=== PATIENT | female | born 1960 | race Caucasian/White ===

== ENCOUNTER → 2017-02-16 | Outpatient (CLI) | payer OTHER ==
--- NOTE | 2017-02-17 05:55 | MR ---
EXAMINATION TYPE: MR knee RT wo con DATE OF EXAM: 02/16/2017 7:38 PM COMPARISON: Outside right knee x-ray January 12, 2017. Prior MRI right knee May 16, 2016. HISTORY: Rt knee pain, slipped on ice 11-14-16 TECHNIQUE: Multiplanar, multisequence images of the knee is performed without IV contrast. FINDINGS: MEDIAL MENISCUS: Anterior horn is intact without tear. There is linear and globular increased signal in the posterior horn of medial meniscus extending to inferior articular surface which is truncated i n shape consistent with full-thickness tear similar appearance to prior. LATERAL MENISCUS: Anterior and posterior horns are intact without tear. CRUCIATE LIGAMENTS: The anterior and posterior cruciate ligaments are intact and unremarkable. COLLATERAL LIGAMENTS: The medial collateral ligament and lateral collateral ligament complex are inta ct and unremarkable. EXTENSOR MECHANISM: Visualized quadriceps and patellar tendons are intact. EFFUSION: There is a large suprapatellar joint effusion on current study more prominent than prior MR I. POPLITEAL CYST: No popliteal/magaña cyst. There is increased signal medial head just past origin danny rocnemius tendon seen best on axial image 11 and sagittal image 7 consistent with partial tear or sma ll ganglion cyst redemonstrated. TRICOMPARTMENT SPACES: Moderate to severe joint space loss patellofemoral compartment with mild to mo derate spurring is redemonstrated. There is mild joint space loss with mild to moderate spurring in t he medial and lateral tibiofemoral compartments, slightly more pronounced joint space loss medial tib iofemoral compartment is noted. CARTILAGE: There is full-thickness cartilaginous loss of the posterior patellar pole. There is cartil aginous thinning medial tibiofemoral compartment. BONE MARROW SIGNAL: There are foci of of T2 hyperintensity in the posterior patellar pole most pronou nced in the superior aspect. OTHER: No additional significant abnormality is appreciated. IMPRESSION: 1. Full-thickness tear posterior horn of medial meniscus redemonstrated. 2. Redemonstration of tricompartmental degenerative changes most pronounced patellofemoral compartmen t with full-thickness chondromalacia patella and some reactive osseous changes redemonstrated. 3. Large suprapatellar joint effusion increased in size from prior. 4. No new meniscal or ligamentous tear is seen.
== END | disposition home or self-care (01) ==
LOC: RADMRIMAIN 18:40
PROVIDERS: ATTEND Orthopaedic Surgery
DX: S83.241A Other tear of medial meniscus, current injury, right knee, initial encounter (principal); M17.11 Unilateral primary osteoarthritis, right knee; M22.41 Chondromalacia patellae, right knee

== ENCOUNTER → 2017-02-25 | Outpatient (CLI) | payer OTHER ==
[2017-02-25 14:44] LABS: EKG EKG PERFORMED
[2017-02-25 15:07] LABS: Basophils % (A) 1 %; CH 31.1; CHCM 32.7; Eosinophils # (A) 0.2 k/uL (0-0.7); Eosinophils % (A) 3 %; HCT 43.9 % (34.0-46.0); HDW 2.35; HGB 14.4 gm/dL (11.4-16.0); Luc # (Auto) 0.19; Luc % (Auto) 3; Lymphocytes # (A) 2.7 k/uL (1.0-4.8); Lymphocytes % (A) 38 %; MCH 31.3 pg (25.0-35.0); MCHC 32.8 g/dL (31.0-37.0); MCV 95.3 fL (80.0-100.0); Mean Platelet Volume 7.5; Monocytes # (A) 0.4 k/uL (0-1.0); Monocytes % (A) 5 %; Neutrophils # (A) 3.5 k/uL (1.3-7.7); Neutrophils % (A) 50 %; RDW 14.2 % (11.5-15.5); WBC 6.9 k/uL (3.8-10.6); WBC (Perox) 7.11
[2017-02-25 15:15] LABS: Anion Gap 10 mmol/L; Carbon Dioxide 26 mmol/L (22-30); Chloride 106 mmol/L (98-107); Potassium 4.3 mmol/L (3.5-5.1); Sodium 142 mmol/L (137-145)
== END | disposition home or self-care (01) ==
LOC: LABPAT 14:14
PROVIDERS: ATTEND Orthopaedic Surgery
DX: Z01.818 Encounter for other preprocedural examination (principal); M23.91 Unspecified internal derangement of right knee
CPT/HCPCS: 80051; 85025; 93005

== ENCOUNTER 2017-03-05 08:17 | Day surgery (SDC) | payer BC, OTHER ==
[2017-03-03 14:45] VITALS: BMI 31.0
--- NOTE | 2017-03-04 17:22 | HP ---
DATE OF ADMISSION: Tamar Garcia is a 56-year-old patient seen with progressive right knee pain. After having treatment options discussed, she elected to proceed with right knee arthroscopy. Consent was obtained. Past medical history is hypertension. PAST SURGICAL HISTORY: Left shoulder arthroscopy. Daily medications: 1. Losartan. 2. Ibuprofen. ALLERGIES: None. SOCIAL HISTORY: The patient smokes cigarettes. Physical evaluation of right knee: Range of motion is -1/2 to 120 degrees, as a mild intra-articular effusion present. Tenderness along the medial joint line. Positive medial Tony's. Crepitus medial and patellofemoral compartments with range of motion. Ligaments stable. Hip rotation without pain. Distal neurovascular exam intact. Radiographs of the right knee revealed mild osteoarthritic changes. MRI right knee revealed medial meniscal tear, joint effusion and osteoarthritis. IMPRESSION: Internal derangement of right knee with medial meniscal tear. PLAN: Right knee arthroscopy with partial meniscectomy and debridement.
[~2017-03-05 08:17] MED LIST: DEXAMETHASONE SOD PHOSPHATE 10 MG/ML 1 ML VIAL IV ONE; LACTATED RINGERS 1,000 ML IV SCH; MIDAZOLAM 2 MG/2 ML VIAL IV PRN; ceFAZolin 2 GM in SODIUM CHLORIDE 0.9% 100 ML IVPB ONE
[2017-03-05] MEDS ORDERED: LIDOCAINE 1% 20 ML VIAL (10MG/ML) FOR IV START INTRADERMA ONE (08:50)
[2017-03-05] MEDS: ONDANSETRON 4 MG/2 ML VIAL IVP ONE ×2 (08:54→11:06)
[2017-03-05] MEDS ORDERED: BUPIVACAIN-EPI 0.25%-1:200,000 30 ML VIAL INTRAARTIC ONE (09:32)
[2017-03-05] MEDS ORDERED: PROPOFOL 10 MG/ML 20 ML VIAL IV ONE (09:45)
[2017-03-05] MEDS ORDERED: KETOROLAC 30 MG/ML 1 ML VIAL ONE (09:45)
[2017-03-05] MEDS ORDERED: LIDOCAINE 1% INJ 10MG/ML (20 ML MDV) ONE (09:45)
[2017-03-05] MEDS ORDERED: fentaNYL (PF) 50 MCG/ML 2 ML AMP ONE (09:45)
[2017-03-05] MEDS ORDERED: SUCCINYLCHOLINE CHLORIDE 100 MG/5 ML SYR IV ONE (09:45)
[2017-03-05] MEDS ORDERED: MIDAZOLAM 2 MG/2 ML VIAL ONE (09:45)
--- NOTE | 2017-03-05 10:47 | P.OP ---
Date of Procedure: 03/05/17 Preoperative Diagnosis: Internal derangement right knee Postoperative Diagnosis: 1. Tear medial and lateral meniscus right knee 2. Grade 2/3 chondromalacia medial femoral condyle right knee 3. Grade 2 chondromalacia patella right knee 4. Reactive synovitis medial and suprapatellar compartments right knee Procedure(s) Performed: 1. Arthroscopic partial medial and lateral meniscectomy right knee 2. Arthroscopic chondroplasty medial femoral condyle right knee 3. Arthroscopic chondroplasty patella right knee 4. Arthroscopic partial synovectomy medial and suprapatellar compartments right knee Anesthesia: GETA Surgeon: Anjum Rust Estimated Blood Loss (ml): 10 Pathology: none sent Condition: stable Disposition: PACU Indications for Procedure: 56-year-old patient seen with right knee pain. After treatment options discussed , she elected to proceed with right knee arthroscopy. Operative Findings: see description of procedure Description of Procedure: Patient was taken to the operative suite. Patient underwent a general anesthetic by the department of anesthesia. Patient was given preoperative antibiotics. The right lower extremity was placed in a well-padded arthroscopic leg ruiz. The right leg was prepped and draped in the normal sterile orthopedic fashion. A lateral parapatellar and suprapatellar incision was made. Trochars were inserted. Arthroscopy was initiated. Suprapatellar pouch revealed thick reactive synovitis. The patellofemoral joint appeared to articulate congruently. There was grade 2 chondromalacia of the patella with some osteochondral tears present. The scope was guided into the medial gutter. No loose bodies or plica were identified. The scope was then guided into the medial compartment. A medial parapatellar incision was made. Trocar inserted followed by probe. There was a radial tear involving the posterior horn of the medial meniscus. There were grade 2 and 3 chondromalacia changes of the medial femoral condyle with some osteochondral tears present. There were grade 1-2 chondromalacia changes of the tibial plateau. No loose bodies. There was some synovitis anteriorly. A partial medial meniscectomy was performed on a stable tissue. I performed a chondroplasty of the medial femoral condyle and partial synovectomy. The residual meniscus was found stable. The residual osteochondral surface of the medial femoral condyle was stable. Scope and probe were then guided into the intercondylar notch. Cruciates were identified , probed and found to be stable. The scope and probe were then guided into lateral compartment. There was a tear posterior horn lateral meniscus. There were mild grade 1 chondromalacia changes lateral compartment. No loose bodies or reactive synovitis. A partial lateral meniscectomy was performed on a stable tissue. The residual meniscus was probed and found to be stable. The scope was in guided back into the suprapatellar compartment. I introduced a motorized shaver into the super patellar compartment. I debrided some piecemeal fragments of meniscus. I performed a chondroplasty of the patella down to stable tissue. I performed a partial synovectomy. The shaver was removed. I took one more look around the entire knee, no residual debris. Instruments were now removed from the joint. The joint was infiltrated with .25 % Marcaine. Steri-Strips were applied to the portal sites. Sterile dressings were applied. The patient was placed into a JERRY hose. No tourniquet was utilized. The patient was awakened, transferred to a bed and taken to recovery stable satisfactory condition.
[2017-03-05 10:52] VITALS: TEMP 97
[2017-03-05] MEDS: HYDROmorphone 1 MG/ML 1 ML SYRINGE IVP PRN ×4 (11:06→11:24)
[2017-03-05] MEDS ORDERED: MEPERIDINE 50 MG/ML SYRINGE IVP ONE (11:31)
[2017-03-05 11:32] VITALS: RESP 14
[2017-03-05 12:22] VITALS: BP 137/80; PULSE 73
[2017-03-05] MEDS ORDERED: HYDROcodone/APAP 7.5-325MG 1 EACH TAB PO ONE (12:42)
== END 2017-03-05 12:40 | disposition home or self-care (01) ==
LOC: OR 08:17
PROVIDERS: ATTEND Orthopaedic Surgery
DX: S83.241A Other tear of medial meniscus, current injury, right knee, initial encounter (principal); S83.281A Other tear of lateral meniscus, current injury, right knee, initial encounter; X58.XXXA Exposure to other specified factors, initial encounter; M94.261 Chondromalacia, right knee; M22.41 Chondromalacia patellae, right knee; M65.861 Other synovitis and tenosynovitis, right lower leg; M25.461 Effusion, right knee; M17.11 Unilateral primary osteoarthritis, right knee; M23.91 Unspecified internal derangement of right knee; I10 Essential (primary) hypertension; Z79.1 Long term (current) use of non-steroidal anti-inflammatories (NSAID); Z79.899 Other long term (current) drug therapy; Z79.891 Long term (current) use of opiate analgesic; F17.210 Nicotine dependence, cigarettes, uncomplicated
CPT/HCPCS: 81025; 29880; J2250; J1100; J2175; J0690; J2405; J2001; J3010; J1885; J1170; J0330; J2704

== ENCOUNTER → 2019-05-02 | Outpatient (CLI) | payer BC ==
--- NOTE | 2019-05-04 10:01 | MM ---
Reason for exam: screening (asymptomatic). Last mammogram was performed 3 years and 2 months ago. History: Patient is postmenopausal and had first child at age 32. Physical Findings: A clinical breast exam by your physician is recommended on an annual basis and results should be correlated with mammographic findings. MG Screening Mammo w CAD Bilateral CC and MLO view(s) were taken. Prior study comparison: March 10, 2016, bilateral MG screening mammo w CAD. April 24, 2011, bilateral digital screening mammo w/CAD. There are scattered fibroglandular densities. Chronic nodularity in the left axilla. No discrete abnormality. ASSESSMENT: Negative, BI-RAD 1 RECOMMENDATION: Routine screening mammogram of both breasts in 1 year.
== END ==
LOC: RADMAMWWP 09:44
PROVIDERS: ATTEND Internal Medicine
DX: Z12.31 Encounter for screening mammogram for malignant neoplasm of breast (principal)
CPT/HCPCS: 77067

== ENCOUNTER → 2019-08-23 | Outpatient (CLI) | payer BC ==
--- NOTE | 2019-08-23 16:54 | US ---
EXAMINATION TYPE: US liver DATE OF EXAM: 08/23/2019 COMPARISON: NONE CLINICAL HISTORY: R74.8 Abnormal levels of other serum enzymes. EXAM MEASUREMENTS: Liver Length: 16.8 cm Gallbladder Wall: 0.2 cm CBD: 0.5 cm Right Kidney: 12.2 x 4.6 x 4.6 cm Pancreas: visualized portions wnl Liver: echogenic as compared to kidney, difficult to penetrate Gallbladder: No stones seen Evidence for sonographic Covarrubias's sign: No CBD: wnl Right Kidney: No hydronephrosis or masses seen IMPRESSION: 1. Hepatomegaly with mild fatty infiltration
== END | disposition home or self-care (01) ==
LOC: RADUSWWP 07:26
PROVIDERS: ATTEND Internal Medicine
DX: K76.0 Fatty (change of) liver, not elsewhere classified (principal); R16.0 Hepatomegaly, not elsewhere classified
CPT/HCPCS: 76705

== ENCOUNTER → 2021-02-21 | Outpatient (CLI) | payer BC ==
--- NOTE | 2021-02-21 16:28 | MR ---
Resulting EXAMINATION TYPE: MR lumbar spine wo con DATE OF EXAM: 02/21/2021 4:14 PM COMPARISON: NONE HISTORY: Low back pain into rt buttocks/rt leg, numbness in rt leg Multiplanar, MultiSpin echo imaging of the lumbar spine was performed. L1-L2: Normal disc appearance without desiccation. No herniation, protrusion or disc bulging. No ca nal stenosis is present. Foramina are patent bilaterally. L2-L3: Vacuum disc noted. Posterocentral disc herniation effaces the ventral thecal sac. Bilateral la teral recess stenosis and borderline to mild central stenosis. Left foraminal encroachment. Degenerat javier endplate marrow change. L3-L4: Moderate degenerative disc disease. Circumferential disc bulge greatest posteriorly. Mild effa cement ventral thecal sac. No evidence for herniation or central stenosis. Facet joint arthropathy. F oramina are patent bilaterally. L4-L5: Moderate degenerative disc disease. Circumferential disc bulge greatest posteriorly. Effacemen t of the ventral thecal sac with bilateral lateral recess stenosis and borderline central stenosis. F acet joint arthropathy with left greater than right foraminal encroachment. L5-S1: Vacuum disks noted. Posterocentral mild disc herniation. Mild effacement ventral thecal sac. N o evidence for central stenosis. Mild right lateral recess stenosis. Mild right foraminal encroachmen t. Lumbar segments are intact. No paraspinal masses are identified. Conus medullaris has a normal appe arance. Multiple hemangiomas noted. Degenerative endplate marrow change. Ventral spondylosis. IMPRESSION: 1. Multilevel degenerative disc disease as discussed. 2. Borderline to mild central stenosis at L3-4 and borderline central stenosis at L4-5. See above.
== END | disposition home or self-care (01) ==
LOC: RADMRIMAIN 14:42
PROVIDERS: ATTEND Orthopaedic Surgery
DX: M47.816 Spondylosis without myelopathy or radiculopathy, lumbar region (principal); M48.061 Spinal stenosis, lumbar region without neurogenic claudication; M51.36 Other intervertebral disc degeneration, lumbar region; M51.26 Other intervertebral disc displacement, lumbar region; M99.73 Connective tissue and disc stenosis of intervertebral foramina of lumbar region
CPT/HCPCS: 72148

== ENCOUNTER 2021-04-30 09:56 | Day surgery (SDC) | payer BC ==
[2021-04-26 12:56] VITALS: BMI 36.1
[~2021-04-30 09:56] MED LIST changes: -DEXAMETHASONE SOD PHOSPHATE 10 MG/ML 1 ML VIAL IV ONE; -MIDAZOLAM 2 MG/2 ML VIAL IV PRN; -ceFAZolin 2 GM in SODIUM CHLORIDE 0.9% 100 ML IVPB ONE
[2021-04-30 10:26] VITALS: TEMP 97.1
[2021-04-30] MEDS ORDERED: LIDOCAINE 1% (10MG/ML) FOR IV START INTRADERMA ONE (10:30)
[2021-04-30] MEDS ORDERED: MIDAZOLAM 2 MG/2 ML VIAL ONE (10:37)
[2021-04-30] MEDS ORDERED: methylPREDNISolone ACETATE 40 MG/ML 1 ML VIAL ONE (10:37)
[2021-04-30] MEDS ORDERED: IOPAMIDOL M200 10 ML VIAL ONE (10:37)
[2021-04-30] MEDS ORDERED: fentaNYL (PF) 50 MCG/ML 2 ML AMP ONE (10:37)
--- NOTE | 2021-04-30 10:55 | P.PCN ---
Date of Procedure: 04/30/21 Procedure(s) Performed: PREOPERATIVE DIAGNOSIS: 1-Lumbar radiculopathy . 2-lumbar spinal stenosis. 3- Lumbar spondylosis POSTOPERATIVE DIAGNOSIS: Same as preoperative diagnoses. PROCEDURE 1. Transforaminal epidural steroid injection under fluoroscopic guidance at [facility] t L5-S1 level. (Fluoroscopy images stored on file in the radiology Department ) 2. Lumbar epidurogram . ANESTHESIA: Local with 1% lidocaine 3 ml , moderate sedation with intravenous Versed 2 mg and fentanyle 50 micrograms. EBL: Minimal PROCEDURE INDICATION: The patient with low back pain and radiculopathy symptoms unresponsive to conservative treatment. PROCEDURE DESCRIPTION / TECHNIQUE: The patient was seen and identified in the preoperative area. Risks, benefits, complications, and alternatives were discussed with the patient. The patient agreed to proceed with the procedure and signed the consent. IV was started, and vital signs were stable. Patient was taken to the OR and time out was completed. The patient was placed in the prone position on procedure table and a pillow was placed under the abdomen to reduce lumbar lordosis. The lumbosacral area was prepped and draped in the usual sterile fashion. Critical pause was taken. Vital signs were closely monitored during the procedure. Conscious sedation was used during the procedure to decrease patient s anxiety. Using oblique fluoroscopy, the chin of the ``Chuck dog at Right L5-S1 level was identified, and the skin and deeper tissues just below was localized with 1% lidocaine. Subsequently, a 22-gauge 5-inch spinal needle was advanced under a tunneled view fluoroscopic guidance just underneath the chin of the `Supriyay dog at the right L5-S1 Under lateral fluoroscopy, the needle was then advanced to the posterior border of the interforaminal space. After negative aspiration of CSF and blood and with no paresthesias, 1 mL Isovue 200 contrast dye was injected excellent epidurogram and outlining of the nerve root Subsequently, 3 mL of block solution containing 80 mg Depo-Medrol and 2 mL of 0.9% normal saline PF was injected. Needle was removed . At the end of the procedure, skin was cleansed, and bandages were applied. COMPLICATIONS:none DISPOSITION / PLANS: The patient was placed in a supine position and transferred to the recovery area in a stable condition for observation. There was no evidence of lower extremity motor or sensory deficit after the procedure. Nabor keli was discharged from the recovery room after meeting discharge criteria. Home discharge instructions were given to the patient by the staff. The patient was reexamined prior to discharge.
[2021-04-30] MEDS ORDERED: IV FLUID CONTINUATION 800 ML IV ONE (11:04)
[2021-04-30 11:12] VITALS: RESP 16
[2021-04-30 11:24] VITALS: BP 124/71; PULSE 60
--- NOTE | 2021-04-30 12:31 | FL ---
Fluoroscopy INDICATION: Pain FINDINGS: Fluoroscopy time: 4 seconds. Images obtained: 1. IMPRESSIONS: 1. Documentation of fluoroscopy.
== END 2021-04-30 11:33 | disposition home or self-care (01) ==
LOC: ORPAIN 09:56
PROVIDERS: ATTEND Specialist
DX: M48.061 Spinal stenosis, lumbar region without neurogenic claudication (principal); M47.26 Other spondylosis with radiculopathy, lumbar region
CPT/HCPCS: 64483; J2250; J1030; J3010; Q9966; 99152

== ENCOUNTER 2021-05-14 11:45 | Day surgery (SDC) | payer BC ==
[2021-05-10 12:16] VITALS: BMI 36.1
[2021-05-14 12:05] VITALS: RESP 16; TEMP 98
[2021-05-14] MEDS ORDERED: LIDOCAINE 1% (10MG/ML) FOR IV START INTRADERMA ONE (12:10)
[2021-05-14] MEDS ORDERED: fentaNYL (PF) 50 MCG/ML 2 ML AMP ONE (12:45)
[2021-05-14] MEDS ORDERED: IOPAMIDOL M200 10 ML VIAL ONE (12:45)
[2021-05-14] MEDS ORDERED: DEXAMETHASONE SOD PHOSPHATE 10 MG/ML 1 ML VIAL ONE (12:45)
[2021-05-14] MEDS ORDERED: MIDAZOLAM 2 MG/2 ML VIAL ONE (12:45)
--- NOTE | 2021-05-14 13:01 | P.PCN ---
Date of Procedure: 05/14/21 Surgeon: Pawel Obando Pathology: none sent Condition: stable Disposition: PACU Description of Procedure: PREOPERATIVE DIAGNOSIS: Lumbar radiculopathy POSTOPERATIVE DIAGNOSIS: Lumbar radiculopathy PROCEDURE 1. Transforaminal epidural steroid injection under fluoroscopic guidance at L5- S1 on the right side 2. Lumbar epidurogram. SURGEON: Pawel Obando MD ANESTHESIA: Local with 1% lidocaine; IV sedation with Versed and fentanyl. EBL: Minimal PROCEDURE INDICATION: The patient with low back pain and radiculopathy symptoms unresponsive to conservative treatment. PROCEDURE DESCRIPTION / TECHNIQUE: The patient was seen and identified in the preoperative area. Risks, benefits, complications, and alternatives were discussed with the patient. The patient agreed to proceed with the procedure and signed the consent. IV was started, and vital signs were stable. Patient was taken to the OR and time out was completed. The patient was placed in the prone position on procedure table and a pillow was placed under the abdomen to reduce lumbar lordosis. The lumbosacral area was prepped and draped in the usual sterile fashion. Critical pause was taken. Vital signs were closely monitored during the procedure. Conscious sedation was used during the procedure to decrease patients anxiety. The vertebral body of the lumbar vertebra L5 was squared off by tilting the C-arm cephalad then the C-arm was tilted to the oblique position and the target point was at the 6 o'clock position of the pedicle of L5 then skin and deeper tissues were localized with 1% lidocaine. Subsequently, a 22-gauge 5- inch spinal needle was advanced under a tunneled view fluoroscopic guidance just underneath the chin of the Chuck dog at the . Under lateral fluoroscopy, the needle was then advanced to the middle of the upper one third of the foramen between(L5-S1 ). After negative aspiration of CSF and blood and with no paresthesias, 1 mL of omnipaque contrast dye was injected excellent epidurogram and outlining of the L5 nerve root was identified. Subsequently, 2 mL of block solution containing 10 mg of Decadron and 1 mL of Lidocaine 1% PF was injected. Needle was removed intact . At the end of the procedure, skin was cleansed, and bandages were applied. COMPLICATIONS: None COMMENTS: DISPOSITION / PLANS: The patient was placed in a supine position and transferred to the recovery area in a stable condition for observation. There was no evidence of lower extremity motor or sensory deficit after the procedure. Patient was discharged from the recovery room after meeting discharge criteria. Home discharge instructions were given to the patient by the staff.
[2021-05-14] MEDS ORDERED: IV FLUID CONTINUATION 1,000 ML IV ONE (13:06)
[2021-05-14 13:09] VITALS: BP 127/86
[2021-05-14 13:32] VITALS: PULSE 66
--- NOTE | 2021-05-14 16:33 | FL ---
Fluoroscopy HISTORY: Pain 13 seconds fluoroscopy time supplied to the referring clinician. 3 intraoperative C-arm images docum ent the procedure. See dictated report from anesthesia.
== END 2021-05-14 13:50 | disposition home or self-care (01) ==
LOC: ORPAIN 11:45
PROVIDERS: ATTEND Anesthesiology
DX: M54.16 Radiculopathy, lumbar region (principal); I10 Essential (primary) hypertension; E66.9 Obesity, unspecified; Z68.35 Body mass index [BMI] 35.0-35.9, adult; Z79.82 Long term (current) use of aspirin; Z98.51 Tubal ligation status
CPT/HCPCS: 64483; J2250; J1100; J2001; J3010; Q9966; 99152

== ENCOUNTER → 2021-06-05 | Outpatient (CLI) | payer BC ==
[2021-06-05 09:03] VITALS: BP 144/77; PULSE 85; RESP 18; TEMP 97.8
--- NOTE | 2021-06-05 09:28 | P.PN ---
Subjective Progress Note Date: 06/05/21 This is a follow-up visit for this 60-year-old female with a chronic history of severe low back pain with radiation to the right lower extremity associated with numbness and tingling sensation, she is diagnosed with lumbar radiculopathy and lumbar degenerative disc disease, lumbar spinal stenosis and lumbar spondylosis with lumbar facet arthropathy, recently we have done a right-sided transforaminal epidural steroid injections at L5-S1 x2 , she reported that she had significant improvement of her low back pain and the radicular pain, the pain came back again, this therapist localized in the low back area with radiation to the right lower extremity, he has any motor or sensory deficit she denies any fever or night sweats Objective - Vital Signs Vital signs: Vital Signs Temp 97.8 F 06/05/21 08:59 Pulse 85 06/05/21 08:59 Resp 18 06/05/21 08:59 BP 144/77 06/05/21 08:59 Pulse Ox 96 06/05/21 08:59 - Exam Physical Examinations : -Constitutiona : Cooperative , not in acute distress . -HEENT : nech : supple , no Lymphadenopathy , normal thyroid size . : eyes : no ptosis , no icterus, no photophobia . - neurologic : Cranial nerve II to XII intact , no focal neurological deffecit . -psychatric : alert , oriented X 3 , appropriate affect , intact judgment and insight . -Lymphatic : no Lymphadenopathy . - musculoskeltal : Lumber spine moter stegnth lower extremities ,thigh and legs 5/5 Right side , 5/5 Left side deep tendon reflexes : normal Knee Jerk , normal ankle Jerk lumber facet Loading Test =positive Right , positive Left Range of motion of the lumbar spine Flexion 60 degrees, extension 10 degrees strait leg raising test = negative bilaterally Fabere test= negative bilaterally Sever tenderness over the Sacroiliac joint on the Right , MRI of the lumbar spine multilevel lumbar degenerative disc disease and facet joint arthropathy at L3 4 and L4 5 and L5-S1 L5-S1 disc herniation with foraminal stenosis at L4-L5 . Assessment and Plan Plan: Assessment and plan=1-Lumbar radiculopathy. 2-Lumbar spondylosis with lumbar facet arthropathy. 3-lumbar degenerative disc disease. 4-lumbar foraminal stenosis. She could benefit from repeat right-sided transforaminal epidural steroid injection under fluoroscopy guidance at L5-S1 After the patient will follow up with for evaluation. - PQRS measures = - Patient's medications are documented in the chart. -Tobacco use is positive , and counseling.Given. -Patient's has not received pneumococcal vaccine. -Advanced care planning discussed, patient not eligible. -Opiate contract not signed. -Pain positive and follow-up visit/procedure is scheduled. -Patient's blood pressure measured [ 144/77 ] , and documented in the record ,and patient will follow up with the primary care. -Patient's weight was measured and body mass index [ ] above the normal limits and counseling was done. and patient instructed to follow-up with the primary care physician. -Patient was not identified as an unhealthy alcohol user Time with Patient: Less than 30
== END ==
LOC: PNWHC3 08:53
PROVIDERS: ATTEND Specialist
DX: M47.26 Other spondylosis with radiculopathy, lumbar region (principal); M48.061 Spinal stenosis, lumbar region without neurogenic claudication; M51.16 Intervertebral disc disorders with radiculopathy, lumbar region
CPT/HCPCS: 99211

== ENCOUNTER → 2021-07-19 | Day surgery (SDC) | payer BC ==
[2021-07-15 17:49] VITALS: BMI 35.2
[~2021-07-19] MED LIST changes: +IV FLUID CONTINUATION 900 ML IV ONE; +LIDOCAINE 1% (10MG/ML) FOR IV START INTRADERMA ONE; +LIDOCAINE 1% (10MG/ML) FOR IV START INTRADERMA PRN; +MIDAZOLAM 2 MG/2 ML VIAL ONE; +ROPIVACAINE 5MG/ML 20ML VIAL ONE; +fentaNYL (PF) 50 MCG/ML 2 ML AMP ONE; +methylPREDNISolone ACETATE 40 MG/ML 1 ML VIAL ONE
[2021-07-19 08:30] VITALS: TEMP 98.1
--- NOTE | 2021-07-19 08:56 | P.PCN ---
Date of Procedure: 07/19/21 Procedure(s) Performed: PREOPERATIVE DIAGNOSIS : 1- Lumbar spondylosis with Facet Arthropathy without myelopathy . 2- Lumber degenerative disc disease POSTOPERATIVE DIAGNOSIS: 1- Lumbar spondylosis with Facet Arthropathy without myelopathy . 2- Lumber degenerative disc disease PROCEDURE: Diagnostic Right L2 ,L3 , L4 , and L5 medial branch block under fluoroscopy guidance(fluoroscopy images available in the radiology Department ) ( To target the facet joint between Right L3-4 , L4-5 , and L5-S1 ) ANESTHESIA: Monitored anesthesia care as per anesthesia department.. EBL: Minimal COMPLICATION: None PROCEDURE INDICATION: Chronic low back pain secondary to Facet arthropathy unresponsive to conservative treatment. PROCEDURE DESCRIPTION: the patient was seen and identified in the preop holding area , risks and benefits and possible complications of the procedure and alternative were discussed with the patient, and the patient agreed to proceed with the procedure and signed the consent and vital signs monitored during the procedure and fluoroscopy was used to maximize the benefit and accuracy of the needle placement, and sedation was given to decrease patient anxiety, patient was taken to the procedure room and placed in prone position vital signs monitored in the back prepped with chlorhexidine X3 then under strict sterile technique using a right oblique fluoroscopy ,the junction of the transverse process and the superior articulating process of the right L2 , L3 , L4 , and L5 vertebra which corresponding to the fluoroscopy image of the eye of the Chuck dog on the block side for the medial branches and subsequently , after local infiltration of skin and subcu tissuies with Ropivacaine 0.5 % , one mL at each level ,then 22-gauge 5 inches long Quincke-type needles , 4 needle was used , each one of them placed at the junction of the base of the transverse process and the superior articular process at the appropriate level, and the needle was advanced until the periosteum contacted, needle placement confirmed with AP oblique and lateral view and after appropriate needle placement confirmed, and after negative aspiration for heme and CSF and there was no paresthesia 2 mL of Ropivacaine 0.5% mixed with 40 mg Depo-Medrol , then half mL injected at each level after negative aspiration the needle subsequently removed . At the end of the procedure and the needles removed and a bandage applied after the skin was cleaned the cleaning solution patient taken to recovery room in stable condition and monitors in the recovery room for 20-30 minutes and discharged home in stable condition after discharge criteria met and patient will follow up with the pain clinic in 2-4 weeks
[2021-07-19 09:15] VITALS: BP 117/72; PULSE 77; RESP 17
--- NOTE | 2021-07-19 12:19 | FL ---
Fluoroscopy HISTORY: Pain 10 seconds fluoroscopy time supplied to the referring clinician. 2 intraoperative C-arm images docum ent the procedure. See dictated report from anesthesia.
== END ==
LOC: ORPAIN 07:42
PROVIDERS: ATTEND Specialist
DX: M47.26 Other spondylosis with radiculopathy, lumbar region (principal); G89.29 Other chronic pain; M51.36 Other intervertebral disc degeneration, lumbar region; I10 Essential (primary) hypertension; J44.9 Chronic obstructive pulmonary disease, unspecified; F17.210 Nicotine dependence, cigarettes, uncomplicated; Z79.82 Long term (current) use of aspirin; Z79.899 Other long term (current) drug therapy; Z98.890 Other specified postprocedural states
CPT/HCPCS: 64493; 64494; J2250; J1030; J3010; J2795

== ENCOUNTER 2021-08-09 06:04 | Day surgery (SDC) | payer BC ==
[2021-08-07 10:06] VITALS: BMI 35.9
[2021-08-09] MEDS ORDERED: LACTATED RINGERS 1,000 ML IV SCH (06:17)
[2021-08-09 06:29] VITALS: TEMP 97.1
[2021-08-09] MEDS ORDERED: MIDAZOLAM 2 MG/2 ML VIAL ONE (07:02)
[2021-08-09] MEDS ORDERED: methylPREDNISolone ACETATE 40 MG/ML 1 ML VIAL ONE (07:02)
[2021-08-09] MEDS ORDERED: fentaNYL (PF) 50 MCG/ML 2 ML AMP ONE (07:02)
[2021-08-09] MEDS ORDERED: ROPIVACAINE 5MG/ML 20ML VIAL ONE (07:02)
--- NOTE | 2021-08-09 07:16 | P.PCN ---
Date of Procedure: 08/09/21 Procedure(s) Performed: PREOPERATIVE DIAGNOSIS : 1- Lumbar spondylosis with Facet Arthropathy without myelopathy . 2- Lumber degenerative disc disease POSTOPERATIVE DIAGNOSIS: 1- Lumbar spondylosis with Facet Arthropathy without myelopathy . 2- Lumber degenerative disc disease PROCEDURE: Diagnostic Right L2 ,L3 , L4 , and L5 medial branch block under fluoroscopy guidance(fluoroscopy images available in the radiology Department ) ( To target the facet joint between Right L3-4 , L4-5 , and L5-S1 )# 2nd ANESTHESIA: Monitored anesthesia care as per anesthesia department.. EBL: Minimal COMPLICATION: None PROCEDURE INDICATION: Chronic low back pain secondary to Facet arthropathy unresponsive to conservative treatment. PROCEDURE DESCRIPTION: the patient was seen and identified in the preop holding area , risks and benefits and possible complications of the procedure and alternative were discussed with the patient, and the patient agreed to proceed with the procedure and signed the consent and vital signs monitored during the procedure and fluoroscopy was used to maximize the benefit and accuracy of the needle placement, and sedation was given to decrease patient anxiety, patient was taken to the procedure room and placed in prone position vital signs monitored in the back prepped with chlorhexidine X3 then under strict sterile technique using a right oblique fluoroscopy ,the junction of the transverse process and the superior articulating process of the right L2 , L3 , L4 , and L5 vertebra which corresponding to the fluoroscopy image of the eye of the Chuck dog on the block side for the medial branches and subsequently , after local infiltration of skin and subcu tissuies with Ropivacaine 0.5 % , one mL at each level ,then 22-gauge 5 inches long Quincke-type needles , 4 needle was used , each one of them placed at the junction of the base of the transverse process and the superior articular process at the appropriate level, and the needle was advanced until the periosteum contacted, needle placement confirmed with AP oblique and lateral view and after appropriate needle placement confirmed, and after negative aspiration for heme and CSF and there was no paresthesia 2 mL of Ropivacaine 0.5% mixed with 40 mg Depo-Medrol , then half mL injected at each level after negative aspiration the needle subsequently removed . At the end of the procedure and the needles removed and a bandage applied after the skin was cleaned the cleaning solution patient taken to recovery room in stable condition and monitors in the recovery room for 20-30 minutes and discharged home in stable condition after discharge criteria met and patient will follow up with the pain clinic in 2-4 weeks
[2021-08-09] MEDS ORDERED: IV FLUID CONTINUATION 1,000 ML IV ONE (07:19)
[2021-08-09 07:21] VITALS: RESP 14
--- NOTE | 2021-08-09 07:26 | FL ---
EXAMINATION TYPE: FL guided pain mgmt statistic DATE OF EXAM: 08/09/2021 HISTORY: Fluoroscopy time 5 seconds of fluoroscopy provided. IMPRESSION: 1. Fluoroscopy time.
[2021-08-09 07:35] VITALS: BP 119/72; PULSE 73
== END 2021-08-09 07:51 | disposition home or self-care (01) ==
LOC: ORPAIN 06:04
PROVIDERS: ATTEND Specialist
DX: G89.29 Other chronic pain (principal); M47.816 Spondylosis without myelopathy or radiculopathy, lumbar region
CPT/HCPCS: 64493; 64494; 64495; J2250; J1030; J3010; J2795

== ENCOUNTER → 2021-09-04 | Outpatient (CLI) | payer BC ==
[2021-09-04 09:26] VITALS: PULSE 79; RESP 18; TEMP 98.5
[2021-09-04 09:39] VITALS: BP 128/88
--- NOTE | 2021-09-04 09:56 | P.PN ---
Subjective Progress Note Date: 09/04/21 This is a follow-up visit for this 60-year-old female with a chronic history of severe low back pain with radiation to the Posterior aspect of the right lower extremity associated with numbness and tingling sensation, she is diagnosed with lumbar radiculopathy , lumbar degenerative disc disease, lumbar spinal stenosis, and lumbar spondylosis with lumbar facet arthropathy, recently we have done a right-sided transforaminal epidural steroid injections at L5-S1 x2 , after that she continued to have severe low back pain, and recently we did right-sided diagnostic medial branch block , patient reported that her VAS before the first block was 8/10 dropped to 0/10 after the block, the pain relief lasted for few days , and she reported that pain was 7/10 before the second block dropped to 2 after the second block, she gets relief for a few days, the pain localized in the low back area with radiation to the right lower extremity, he has NO motor or sensory deficit she denies any fever or night sweats Physical Examinations : -Constitutiona : Cooperative , not in acute distress . -HEENT : nech : supple , no Lymphadenopathy , normal thyroid size . : eyes : no ptosis , no icterus, no photophobia . - neurologic : Cranial nerve II to XII intact , no focal neurological deffecit . -psychatric : alert , oriented X 3 , appropriate affect , intact judgment and insight . -Lymphatic : no Lymphadenopathy . - musculoskeltal : Lumber spine moter stegnth lower extremities ,thigh and legs 5/5 Right side , 5/5 Left side deep tendon reflexes : normal Knee Jerk , normal ankle Jerk lumber facet Loading Test =positive Right , Range of motion of the lumbar spine Flexion 60 degrees, extension 10 degrees strait leg raising test = negative bilaterally Fabere test= negative bilaterally Sever tenderness over the Sacroiliac joint on the Right , MRI of the lumbar spine multilevel lumbar degenerative disc disease and facet joint arthropathy at L3 4 and L4 5 and L5-S1 L5-S1 disc herniation with foraminal stenosis at L4-L5 . Assessment and Plan Plan: Assessment and plan=1-Lumbar radiculopathy. 2-Lumbar spondylosis with lumbar facet arthropathy. 3-lumbar degenerative disc disease. 4-lumbar foraminal stenosis. She could benefit from RFA right-sided medial branch at L3, L4 , L5. (insurance approved only 3 levels RFA ) - PQRS measures = - Patient's medications are documented in the chart. -Tobacco use is positive , and counseling.Given. -Patient's has not received pneumococcal vaccine. -Advanced care planning discussed, patient not eligible. -Opiate contract not signed. -Pain positive and follow-up visit/procedure is scheduled. -Patient's blood pressure measured [ 125/80] , and documented in the record ,and patient will follow up with the primary care. -Patient's weight was measured and body mass index [35.7 ] above the normal limits and counseling was done. and patient instructed to follow-up with the primary care physician. -Patient was not identified as an unhealthy alcohol user Objective - Vital Signs Vital signs: Vital Signs Temp 98.5 F 09/04/21 09:24 Pulse 79 09/04/21 09:24 Resp 18 09/04/21 09:24 BP 128/88 09/04/21 09:24 Pulse Ox
== END ==
LOC: PNWHC3 09:07
PROVIDERS: ATTEND Specialist
DX: M47.26 Other spondylosis with radiculopathy, lumbar region (principal); M51.16 Intervertebral disc disorders with radiculopathy, lumbar region; M48.061 Spinal stenosis, lumbar region without neurogenic claudication; F17.200 Nicotine dependence, unspecified, uncomplicated
CPT/HCPCS: 99211

== ENCOUNTER 2021-10-11 09:57 | Day surgery (SDC) | payer BC ==
[2021-10-10 08:24] VITALS: BMI 35.7
[2021-10-11 10:19] VITALS: RESP 16; TEMP 97.2
[2021-10-11] MEDS ORDERED: LACTATED RINGERS 1,000 ML IV SCH (10:19)
[2021-10-11] MEDS ORDERED: LACTATED RINGERS 1,000 ML IV ONE (10:28)
[2021-10-11] MEDS ORDERED: TRIAMCINOLONE ACETONIDE 40 MG/ML 1 ML VIAL ONE (13:47)
[2021-10-11] MEDS ORDERED: ROPIVACAINE 5MG/ML 20ML VIAL ONE (13:47)
[2021-10-11] MEDS ORDERED: MIDAZOLAM 2 MG/2 ML VIAL ONE (13:48)
[2021-10-11] MEDS ORDERED: fentaNYL (PF) 50 MCG/ML 2 ML AMP ONE (13:48)
--- NOTE | 2021-10-11 14:15 | P.PCN ---
Date of Procedure: 10/11/21 Procedure(s) Performed: PREOPERATIVE DIAGNOSIS: 1-Lumbar Spondylosis with Facet Arthropathy without myelopathy. 2- Lumber degenerative disc disease. POSTOPERATIVE DIAGNOSIS: 1- Lumbar Spondylosis with Facet Arthropathy without myelopathy. 2- Lumber degenerative disc disease. PROCEDURES : Right Radiofrequency thermocoagulation, L3 , L4 , and L5 medial branch, with fluoroscopic guidance (fluoroscopy images available in the radiology department) ( to denervate the facet joint at Right L4-5 ,and L5-S1 levels ). ANESTHESIA: Monitored anesthesia care as per anesthesia department . EBL: Minimal PROCEDURE INDICATION: The patient with low back pain secondary to lumbar facet arthropathy who had more than 50% relief of her pain with previous diagnostic lumbar medial branch block with bupivacaine. PROCEDURE DESCRIPTION / TECHNIQUE: The patient was seen and identified in the preoperative area. Risks, benefits, complications, including but not limited to risk of infection ,bleeding , allergic reactions to the medications and no complete pain releife , and alternatives were discussed with the patient, the patient agreed to proceed with the procedure and signed the consent. IV was started. Vital signs remained stable throughout the procedure. Patient was taken to the OR and time out was completed. The patient was placed in the prone position on the procedure table. The lumber area was prepped and draped in the usual sterile fashion. . Vital signs were closely monitored during the procedure .IV sedation was used during the procedure to decrease patients anxiety. Using AP and then oblique fluoroscopy, the ``eye of the Chuck dog correspo nding to the connection between the superior and transverse articular processes of right L3, L4, and L5 were identified, marked, and localized with 1% lidocaine. Subsequently, a 18 guage 150-mm radiofrequency cannula with a 10-mm active tip was advanced guided by fluoroscopy to each of the``eyes of the Chuck dog at right L3, L4, and L5. Each site then underwent sensory testing at 50 Hz and 0 to 1 volt and motor testing at 2.5 Hz and 0 to 3 volt with local stimulation, but no radicular symptoms down the legs. Thereafter each sites underwent radiofrequency thermocoagulation at 80 degrees celsius for 90 seconds after injecting 0.5 ml of PF Ropivacaine 1ml, then after the thermocoagulation done , 1 ml of the block solution containing Kenalog 40 mg and 3 ml of Ropivacaine 0.5% was injected at the right L3 , L4 , and L5 , levels after negative aspiration of CSF and blood and with no paresthesias. Cannulas were retracted while injecting lidocaine 1% until the needle is out. At the end of the procedure, the skin was cleansed and bandages were applied. COMPLICATIONS: No acute complications. DISPOSITION / PLANS: The patient was placed in a supine position and transferred to the recovery area in a stable condition for observation and was discharged from the recovery room after meeting discharge criteria. Home discharge instructions given to the patient by the staff. The patient was reexamined prior to discharge. The patient will schedule a follow up in the clinic in 2-4 weeks.
[2021-10-11] MEDS ORDERED: IV FLUID CONTINUATION 1,000 ML IV ONE (14:18)
[2021-10-11 14:45] VITALS: BP 154/90; PULSE 72
--- NOTE | 2021-10-11 15:45 | FL ---
Fluoroscopy HISTORY: Pain 9 seconds fluoroscopy time supplied to the referring clinician. 3 intraoperative C-arm images docume nt the procedure. See dictated report from anesthesia.
== END 2021-10-11 14:54 | disposition home or self-care (01) ==
LOC: ORPAIN 09:57
PROVIDERS: ATTEND Specialist
DX: M47.816 Spondylosis without myelopathy or radiculopathy, lumbar region (principal); M51.36 Other intervertebral disc degeneration, lumbar region
CPT/HCPCS: 64635; 64636; J2250; J3301; J3010; J2795

== ENCOUNTER → 2021-10-28 | Outpatient (CLI) | payer BC ==
[2021-10-28 09:31] VITALS: BP 140/83; PULSE 80; RESP 18; TEMP 98.4
--- NOTE | 2021-10-28 09:56 | P.PN ---
Progress Note - Text Progress Note Date: 10/28/21 Follow-up visit for this 60 years old female with a chronic history of severe low back pain she states most with lumbar spondylosis with lumbar facet arthropathy, foraminal stenosis and lumbar degenerative disc disease, recentely we have done an RFA of the medial branch lumbar area on the right side and she reported that her pain completely gone, had minimal to no pain and she uses ibuprofen when necessary, denies any motor or sensory deficit she denies any fever or night sweats, and will follow up with the pain clinic when necessary
== END ==
LOC: PNWHC3 09:03
PROVIDERS: ATTEND Specialist
DX: M47.816 Spondylosis without myelopathy or radiculopathy, lumbar region (principal); M51.36 Other intervertebral disc degeneration, lumbar region; M48.061 Spinal stenosis, lumbar region without neurogenic claudication; Z98.890 Other specified postprocedural states; F17.200 Nicotine dependence, unspecified, uncomplicated
CPT/HCPCS: 99211

== ENCOUNTER 2022-06-05 01:50 | Emergency (ER) | payer BC ==
[2022-06-05 01:57] VITALS: TEMP 97.4
[2022-06-05] MEDS ORDERED: LORazepam 2 MG/ML INJ IV STA (02:38)
[2022-06-05] MEDS ORDERED: SODIUM CHLORIDE 0.9% 500 ML 500 ML IV STA (02:38)
[2022-06-05 04:03] LABS: Basophils % (A) 0 %; Eosinophils # (A) 0.2 k/uL (0-0.7); Eosinophils % (A) 2 %; HGB 13.1 gm/dL (11.4-16.0); Lymphocytes # (A) 1.9 k/uL (1.0-4.8); Lymphocytes % (A) 25 %; MCH 30.3 pg (25.0-35.0); MCV 94.7 fL (80.0-100.0); Mean Platelet Volume 8.2; Monocytes # (A) 0.5 k/uL (0-1.0); Monocytes % (A) 6 %; Neutrophils % (A) 66 %; Platelet Count 248 k/uL (150-450); RBC 4.33 m/uL (3.80-5.40); RDW 14.4 % (11.5-15.5); WBC 7.7 k/uL (3.8-10.6)
[2022-06-05 04:13] LABS: ALT 77 U/L (4-34); AST 55 U/L (14-36); African American GFR (CKD) >90 (>60 ml/min/1.73 sqM); Albumin 4.2 g/dL (3.5-5.0); Alkaline Phosphatase 70 U/L (38-126); Anion Gap 7 mmol/L; Blood Urea Nitrogen 18 mg/dL (7-17); Calcium 9.1 mg/dL (8.4-10.2); Carbon Dioxide 23 mmol/L (22-30); Chloride 104 mmol/L (98-107); Glucose 114 mg/dL (74-99); Non-African American GFR(CKD) 87 (>60 ml/min/1.73 sqM); Potassium 4.5 mmol/L (3.5-5.1); Sodium 134 mmol/L (137-145); Total Bilirubin 0.4 mg/dL (0.2-1.3); Total Protein 6.7 g/dL (6.3-8.2)
[2022-06-05 06:28] VITALS: RESP 18
--- NOTE | 2022-06-05 06:51 | XR ---
EXAMINATION TYPE: XR chest 1V portable DATE OF EXAM: 06/05/2022 COMPARISON: 12/16/1979 HISTORY: Short of breath TECHNIQUE: FINDINGS: There is some mild airspace infiltrate left lung base. The other lung bryant are clear. Hea rt size is normal. No heart failure. There are chest leads. Bony thorax appears intact. IMPRESSION: There is some left lower lobe pneumonia which appears new compared to the old exam.
--- NOTE | 2022-06-05 08:18 | ED ---
Chest Pain HPI - General Chief Complaint: Chest Pain Stated Complaint: Altered Mental Status Time Seen by Provider: 06/05/22 02:26 Source: patient, family Mode of arrival: ambulatory Limitations: no limitations - History of Present Illness Initial Comments: This patient is a 61-year-old woman who presents for evaluation of chest pain, palpitations, shortness of breath and feeling bizarre. Patient states she had taken gummy that had been prepared by a neighbor who uses medicinal cannabis. She rapidly began to feel very strange. History is somewhat limited as patient mildly delirious. MD Complaint: chest pain, other -: hour(s) Onset: during rest Pain Location: substernal Pain Radiation: none Severity: moderate Consistency: constant Improves With: nothing Worsens With: nothing Treatments Prior to Arrival: none - Related Data Home Medications Medication Instructions Recorded Confirmed Losartan Potassium 100 mg PO HS 02/27/16 06/05/22 Allergies Allergy/AdvReac Type Severity Reaction Status Date / Time No Known Allergies Allergy Verified 06/05/22 07:28 Review of Systems ROS Statement: Those systems with pertinent positive or pertinent negative responses have been documented in the HPI. ROS Other: All systems not noted in ROS Statement are negative. Constitutional: Denies: fever, chills Respiratory: Reports: as per HPI, dyspnea. Denies: cough Cardiovascular: Reports: as per HPI, chest pain, palpitations Gastrointestinal: Denies: abdominal pain, vomiting, diarrhea Genitourinary: Denies: dysuria, hematuria Musculoskeletal: Denies: back pain Skin: Denies: rash Neurological: Denies: headache Past Medical History Past Medical History: Hypertension, Osteoarthritis (OA), Pneumonia History of Any Multi-Drug Resistant Organisms: None Reported Past Surgical History: Section, Orthopedic Surgery Additional Past Surgical History / Comment(s): right knee arthroscopic X3, Lt shoulder arthroscopic, PAIN CLINIC INJECTIONS Past Anesthesia/Blood Transfusion Reactions: No Reported Reaction Past Psychological History: No Psychological Hx Reported Smoking Status: Current every day smoker Past Alcohol Use History: None Reported Past Drug Use History: Marijuana - Past Family History Father Additional Family Medical History / Comment(s): aneurysym. Mother Family Medical History: Coronary Artery Disease (CAD), Diabetes Mellitus Sister(s) Family Medical History: Cancer Additional Family Medical History / Comment(s): Lung CA with mets brain General Exam Limitations: no limitations General appearance: alert, anxious Head exam: Present: atraumatic, normocephalic Eye exam: Present: normal appearance. Absent: scleral icterus, conjunctival inj ection Neck exam: Present: normal inspection Respiratory exam: Present: normal lung sounds bilaterally. Absent: respiratory distress, wheezes, rales, rhonchi, stridor Cardiovascular Exam: Present: normal rhythm, tachycardia, normal heart sounds. Absent: systolic murmur, diastolic murmur, rubs, gallop GI/Abdominal exam: Present: soft. Absent: distended, tenderness, guarding, rebound, rigid, mass Extremities exam: Present: normal inspection, normal capillary refill. Absent: pedal edema, calf tenderness Back exam: Present: normal inspection. Absent: CVA tenderness (R), CVA tenderness (L) Neurological exam: Present: alert, CN II-XII intact. Absent: motor sensory deficit Psychiatric exam: Present: anxious. Absent: homicidal ideation, suicidal ideation Skin exam: Present: warm, dry, intact, normal color. Absent: rash Course Vital Signs 06/05/22 06/05/22 06/05/22 01:51 02:34 03:52 Temperature 97.4 F L Pulse Rate 126 H 104 H Pulse Rate [ 104 H Dietetic Technician ] Respiratory 24 25 H Rate Blood Pressure 140/111 131/66 O2 Sat by Pulse 99 96 Oximetry 06/05/22 06:27 Temperature Pulse Rate 90 Pulse Rate [ Dietetic Technician ] Respiratory 18 Rate Blood Pressure 109/83 O2 Sat by Pulse 97 Oximetry Disposition Clinical Impression: Adverse reaction to drug Disposition: HOME SELF-CARE Condition: Good Instructions (If sedation given, give patient instructions): Cannabis Abuse (ED) Is patient prescribed a controlled substance at d/c from ED?: No Referrals: Robert Allred DO [Primary Care Provider] - 1-2 days
[2022-06-05 08:33] VITALS: BP 112/70; PULSE 78
== END 2022-06-05 08:33 | disposition home or self-care (01) ==
LOC: EC 01:50
DX: R07.89 Other chest pain (principal); R00.2 Palpitations; R06.02 Shortness of breath; T50.905A Adverse effect of unspecified drugs, medicaments and biological substances, initial encounter; I10 Essential (primary) hypertension; M19.90 Unspecified osteoarthritis, unspecified site; F17.200 Nicotine dependence, unspecified, uncomplicated; F12.90 Cannabis use, unspecified, uncomplicated; Z79.899 Other long term (current) drug therapy
CPT/HCPCS: 36415; 93005; 80053; 84484; 85025; 71045; 99285; 96374; J2060

== ENCOUNTER 2022-06-18 10:43 | Emergency (ER) | payer BC ==
[2022-06-18 10:52] VITALS: TEMP 97.5
--- NOTE | 2022-06-18 12:01 | ED ---
URI HPI - General Chief Complaint: Upper Respiratory Infection Stated Complaint: no taste/smell/Covid+ Time Seen by Provider: 06/18/22 10:55 Source: patient Mode of arrival: ambulatory Limitations: no limitations - History of Present Illness Initial Comments: Patient is a 61-year-old female presenting with for monoclonal antibodies after testing positive for Covid at home. Patient states that over the last 2 days she has had a cough, congestion, loss of taste and smell, and mild shortness of breath on exertion. Patient denies any chest pain, palpitations, weakness, sore throat, ear pain, sinus pain, nausea, vomiting, diarrhea, abdominal pain, hematochezia, melena, dysuria, hematuria. - Related Data Home Medications Medication Instructions Recorded Confirmed Losartan Potassium 100 mg PO HS 02/27/16 06/05/22 Previous Rx's Medication Instructions Recorded Albuterol Inhaler [Ventolin Hfa 1 - 2 puff INHALATION RT-Q6H PRN 06/18/22 Inhaler] #1 unit Allergies Allergy/AdvReac Type Severity Reaction Status Date / Time No Known Allergies Allergy Verified 06/18/22 10:49 Review of Systems ROS Statement: Those systems with pertinent positive or pertinent negative responses have been documented in the HPI. ROS Other: All systems not noted in ROS Statement are negative. Past Medical History Past Medical History: Hypertension, Osteoarthritis (OA), Pneumonia History of Any Multi-Drug Resistant Organisms: None Reported Past Surgical History: Section, Orthopedic Surgery Additional Past Surgical History / Comment(s): right knee arthroscopic X3, Lt shoulder arthroscopic, PAIN CLINIC INJECTIONS Past Anesthesia/Blood Transfusion Reactions: No Reported Reaction Past Psychological History: No Psychological Hx Reported Smoking Status: Current every day smoker Past Alcohol Use History: None Reported Past Drug Use History: None Reported - Past Family History Father Additional Family Medical History / Comment(s): aneurysym. Mother Family Medical History: Coronary Artery Disease (CAD), Diabetes Mellitus Sister(s) Family Medical History: Cancer Additional Family Medical History / Comment(s): Lung CA with mets brain General Exam Limitations: no limitations General appearance: alert, in no apparent distress Head exam: Present: atraumatic, normocephalic, normal inspection Eye exam: Present: normal appearance, EOMI. Absent: scleral icterus, periorbital swelling Neck exam: Present: normal inspection Respiratory exam: Present: wheezes. Absent: respiratory distress, rales, rhonchi, stridor Cardiovascular Exam: Present: regular rate, normal rhythm, normal heart sounds. Absent: systolic murmur, diastolic murmur, rubs, gallop, clicks Neurological exam: Present: alert, oriented X3, CN II-XII intact Psychiatric exam: Present: normal affect, normal mood Skin exam: Present: warm, dry, intact, normal color. Absent: rash Course Vital Signs 06/18/22 06/18/22 06/18/22 10:49 11:17 12:00 Temperature 97.5 F L Pulse Rate 71 72 Respiratory 18 17 17 Rate Blood Pressure 154/96 126/81 O2 Sat by Pulse 98 99 Oximetry 06/18/22 13:53 Temperature Pulse Rate 67 Respiratory 16 Rate Blood Pressure 129/88 O2 Sat by Pulse 97 Oximetry Medical Decision Making - Medical Decision Making Patient is a 61-year-old female requesting monoclonal antibodies for treatment of Covid after testing positive at home. She has been experiencing cough, congestion, loss of taste and smell, and mild shortness of breath on exertion. On examination there is minimal wheezing on auscultation of the lungs chest x- ray shows no acute process. Patient was given monoclonal antibodies and monitored for one hour for any adverse reaction. She tolerated treatment well. I discussed supportive treatment and provided her with a prescription for an albuterol inhaler. Follow-up with PCP. I instructed her and quarantine guidelines. I educated her return parameters answered all questions. Report back to ER if any new or worsening symptoms. Patient conveyed verbal understanding and agreed to the plan. My attending is Dr. Nielson. - Lab Data Lab Results 06/18/22 Range/Units 11:28 Coronavirus (PCR) Detected A (Not Detectd) Disposition Clinical Impression: COVID Disposition: HOME SELF-CARE Condition: Good Instructions (If sedation given, give patient instructions): COVID-19 (Coronavirus Disease 2019) (ED), How to Recover from COVID-19 at Home (ED) Additional Instructions: You must quarantine for 5 days starting from the first if symptoms, if after these 5 days you're symptom and fever free, you may go out in public while wearing a well fitted mask at all times for an additional 5 days. Take Motrin and Tylenol as needed for fever and pain control. Take medication as prescribed. Follow-up with PCP. Report back to ER if any new or worsening symptoms. Prescriptions: Albuterol Inhaler [Ventolin Hfa Inhaler] 1 - 2 puff INHALATION RT-Q6H PRN #1 unit PRN Reason: Shortness Of Breath Is patient prescribed a controlled substance at d/c from ED?: No Referrals: Robert Allred DO [Primary Care Provider] - 1-2 days Time of Disposition: 01:50
[2022-06-18] MEDS ORDERED: BEBTELOVIMAB (EUA) 175 MG/2 ML VIAL IV ONE (12:45)
--- NOTE | 2022-06-18 12:54 | XR ---
EXAMINATION TYPE: XR chest 2V DATE OF EXAM: 06/18/2022 COMPARISON: Chest x-ray 06/05/2022 HISTORY: Cough and wheezing, Covid positive TECHNIQUE: Frontal and lateral views of the chest are obtained. FINDINGS: There is no focal air space opacity, pleural effusion, or pneumothorax seen. The cardiac silhouette size is within normal limits. The osseous structures are intact, there is multilevel spo ndylosis. Prominent lung volume could be indicative of underlying COPD. IMPRESSION: No acute cardiopulmonary process.
[2022-06-18 13:54] VITALS: BP 129/88; PULSE 67; RESP 16
== END 2022-06-18 13:54 | disposition home or self-care (01) ==
LOC: EC 10:43
DX: U07.1 COVID-19 (principal); I10 Essential (primary) hypertension; M19.90 Unspecified osteoarthritis, unspecified site; F17.200 Nicotine dependence, unspecified, uncomplicated; Z79.899 Other long term (current) drug therapy
CPT/HCPCS: 87635; 71046; 99285; Q0222

== ENCOUNTER → 2023-09-15 | Outpatient (CLI) | payer BC ==
--- NOTE | 2023-09-16 08:59 | MM ---
Reason for Exam: Screening (asymptomatic). Last mammogram was performed 4 year(s) and 4 month(s) ago. Patient History: Menarche at age 14. First Full-Term at age 32. Late child-bearing (after 30). Postmenopausal. Patient has history of breast feeding. Risk Values: Linda 5 year model risk: 2.0%. NCI Lifetime model risk: 9.7%. Prior Study Comparison: 02/10/2006 Bilateral Screening Mammogram, MER[facility]ED WITH [facility]. 04/24/2011 Bilateral Screening Mammogram, MERGED WITH [facility]. 03/10/2016 Bilateral Screening Mammogram, MERGED WITH [facility]. 05/02/2019 Bilateral Screening Mammogram, MERGED WITH [facility]. Tissue Density: The breast tissue is almost entirely fat. Findings: Analyzed By CAD. There is no suspicious group of microcalcifications or new suspicious mass in either breast. Overall Assessment: Negative, BI-RAD 1 Management: Screening Mammogram of both breasts in 1 year. . Patient should continue monthly self-breast exams. A clinical breast exam by your physician is recommended on an annual basis. This exam should not preclude additional follow-up of suspicious palpable abnormalities. Note on Linda scores and lifetime risk: 1. A Linda score greater than 3% is considered moderate risk. If this is the case, consider specialist referral to assess eligibility for a risk reducing agent. 2. If overall lifetime risk for the development of breast cancer is 20% or higher, the patient may qualify for future screening with alternating mammogram and breast MRI. Electronically signed and approved by: Giovanni Kay M.D. Radiologis
== END | disposition home or self-care (01) ==
LOC: RADMAMWWP 13:15
PROVIDERS: ATTEND Obstetrics & Gynecology
DX: Z12.31 Encounter for screening mammogram for malignant neoplasm of breast (principal); Z78.0 Asymptomatic menopausal state
CPT/HCPCS: 77063; 77067

== ENCOUNTER 2024-01-12 17:17 | Observation (INO) | payer BC ==
--- NOTE | 2024-01-12 18:09 | ED ---
General Adult HPI - General Chief complaint: Abdominal Pain Stated complaint: ABD Pain Time Seen by Provider: 01/12/24 17:58 Source: patient, family, RN notes reviewed Mode of arrival: ambulatory Limitations: no limitations - History of Present Illness Initial comments: Patient is a pleasant 63-year-old female presenting to the emergency department with concern ferns for abdominal discomfort. Onset of symptoms was this morning. Discomfort is worsened. Discomfort is mostly right lower abdomen. Patient has had nausea and vomiting. Mostly dry heaves at this point. Patient unclear whether or not she could have had a fever. No constipation or diarrhea. No history of chronic similar symptoms. - Related Data Home Medications Medication Instructions Recorded Confirmed Losartan Potassium 100 mg PO HS 02/27/16 06/05/22 Previous Rx's Medication Instructions Recorded Albuterol Inhaler [Ventolin Hfa 1 - 2 puff INHALATION RT-Q6H PRN 06/18/22 Inhaler] #1 unit Allergies Allergy/AdvReac Type Severity Reaction Status Date / Time No Known Allergies Allergy Verified 06/18/22 10:49 Review of Systems ROS Statement: Those systems with pertinent positive or pertinent negative responses have been documented in the HPI. ROS Other: All systems not noted in ROS Statement are negative. Constitutional: Denies: fever Eyes: Denies: eye pain ENT: Denies: ear pain Respiratory: Denies: cough Cardiovascular: Denies: chest pain Endocrine: Denies: fatigue Gastrointestinal: Reports: as per HPI, abdominal pain, nausea, vomiting Genitourinary: Denies: dysuria Past Medical History Past Medical History: Hypertension, Osteoarthritis (OA), Pneumonia History of Any Multi-Drug Resistant Organisms: None Reported Past Surgical History: Section, Orthopedic Surgery Additional Past Surgical History / Comment(s): right knee arthroscopic X3, Lt shoulder arthroscopic, PAIN CLINIC INJECTIONS Past Anesthesia/Blood Transfusion Reactions: No Reported Reaction Past Psychological History: No Psychological Hx Reported Smoking Status: Current every day smoker, Former smoker Past Alcohol Use History: None Reported Past Drug Use History: None Reported - Past Family History Father Additional Family Medical History / Comment(s): aneurysym. Mother Family Medical History: Coronary Artery Disease (CAD), Diabetes Mellitus Sister(s) Family Medical History: Cancer Additional Family Medical History / Comment(s): Lung CA with mets brain General Exam Limitations: no limitations General appearance: alert, in no apparent distress Head exam: Present: normocephalic Eye exam: Present: normal appearance Neck exam: Present: normal inspection Respiratory exam: Present: normal lung sounds bilaterally Cardiovascular Exam: Present: regular rate, normal rhythm Expanded Peripheral pulses: 2+: Dorsalis Pedis (R), Dorsalis Pedis (L) GI/Abdominal exam: Present: soft, tenderness (Mild to moderate tenderness right lower abdomen), normal bowel sounds. Absent: distended, guarding, rebound, rigid, pulsatile mass Extremities exam: Present: normal inspection Neurological exam: Present: alert Psychiatric exam: Present: normal affect, normal mood Skin exam: Present: normal color Course Vital Signs 01/12/24 01/12/24 17:25 18:25 Temperature 98.3 F Pulse Rate 72 Respiratory 16 Rate Blood Pressure 184/91 127/104 O2 Sat by Pulse 98 Oximetry EKG Findings - EKG Results: EKG: interpreted by ERMD, sinus rhythm, normal axis, normal QRS, normal ST/T Medical Decision Making - Medical Decision Making Was pt. sent in by a medical professional or institution (DAYTON Perez, CULINARY MANAGER, urgent care, hospital, or intermediate...) When possible be specific @ -No Did you speak to anyone other than the patient for history (EMS, parent, family, police, friend...)? What history was obtained from this source @ - is present and helps provide timeline for history Did you review nursing and triage notes (agree or disagree)? Why? @ -I reviewed and agree with nursing and triage notes Were old charts reviewed (outside hosp., previous admission, EMS record, old EKG, old radiological studies, urgent care reports/EKG's, intermediate records)? Report findings @ -No old charts were reviewed Differential Diagnosis (chest pain, altered mental status, abdominal pain women, abdominal pain men, vaginal bleeding, weakness, fever, dyspnea, syncope, headache, dizziness, GI bleed, back pain, seizure, CVA, palpatations, mental health, musculoskeletal)? @ -Differential Abdominal Pain Women: Appendicitis, Cholecystitis, diverticulosis, ischemic bowel, pancreatitis, hepatitis, UTI, gastroenteritis, AAA, incarcerated hernia, bowel obstruction, constipation, inflammatory bowel, hepatitis, peptic ulcer disease, splenic infarction, perforated viscus, vulvitis, ovarian torsion, PID, kidney stone, placenta abruption, this is not meant to be an all-inclusive list EKG interpreted by me (3pts min.). @ -As above X-rays interpreted by me (1pt min.). @ -None done CT interpreted by me (1pt min.). @ -CT scan abdomen pelvis shows thickened appendix and appendicolith U/S interpreted by me (1pt. min.). @ -None done What testing was considered but not performed or refused? (CT, X-rays, U/S, labs)? Why? @ -None What meds were considered but not given or refused? Why? @ -None Did you discuss the management of the patient with other professionals (professionals i.e. DrIsamar, PA, CULINARY MANAGER, lab, RT, psych nurse, social sciences instructor, spice cleaner, teacher, special officer automat, case managers)? Give summary @ -Dr. Beck for surgical call Was smoking cessation discussed for >3mins.? @ -No Was critical care preformed (if so, how long)? @ -No Were there social determinants of health that impacted care today? How? (Homel essness, low income, unemployed, alcoholism, drug addiction, transportation, low edu. Level, literacy, decrease access to med. care, half-way, rehab)? @ -No Was there de-escalation of care discussed even if they declined (Discuss DNR or withdrawal of care, Hospice)? DNR status @ -No What co-morbidities impacted this encounter? (DM, HTN, Smoking, COPD, CAD, Cancer, CVA, ARF, Chemo, Hep., AIDS, mental health diagnosis, sleep apnea, morbid obesity)? @ -None Was patient admitted / discharged? Hospital course, mention meds given and route, prescriptions, significant lab abnormalities, going to OR and other pertinent info. @ -Patient presents with right lower abdominal tenderness and CT scan findings consistent with appendicitis. Patient still has discomfort. Patient will be admitted to surgery. Admission orders written. Undiagnosed new problem with uncertain prognosis? @ -No Drug Therapy requiring intensive monitoring for toxicity (Heparin, Nitro, Insulin, Cardizem)? @ -No Were any procedures done? @ -No Diagnosis/symptom? @ -Acute appendicitis Acute, or Chronic, or Acute on Chronic? @ -Acute Uncomplicated (without systemic symptoms) or Complicated (systemic symptoms)? @ -Default Side effects of treatment? @ -No Exacerbation, Progression, or Severe Exacerbation? @ -No Poses a threat to life or bodily function? How? (Chest pain, [place], [place], pneumonia, PE, COPD, DKA, ARF, appy, cholecystitis, CVA, Diverticulitis, Homicidal, Suicidal, threat to staff... and all critical care pts) @ -No - Lab Data Result diagrams: 01/12/24 17:30 01/12/24 17:30 Lab Results 01/12/24 01/12/24 01/12/24 Range/Units 17:30 17:30 17:30 WBC 12.1 H (3.8-10.6) k/uL RBC 4.80 (3.80-5.40) m/uL Hgb 14.7 (11.4-16.0) gm/dL Hct 45.3 (34.0-46.0) % MCV 94.5 (80.0-100.0) fL MCH 30.7 (25.0-35.0) pg MCHC 32.5 (31.0-37.0) g/dL RDW 14.4 (11.5-15.5) % Plt Count 241 (150-450) k/uL MPV 8.1 Neutrophils % 84 % Lymphocytes % 10 % Monocytes % 4 % Eosinophils % 1 % Basophils % 1 % Neutrophils # 10.2 H (1.3-7.7) k/uL Lymphocytes # 1.2 (1.0-4.8) k/uL Monocytes # 0.5 (0-1.0) k/uL Eosinophils # 0.1 (0-0.7) k/uL Basophils # 0.1 (0-0.2) k/uL PT 10.4 (10.0-12.5) sec INR 0.9 (<1.2) APTT 22.6 (22.0-30.0) sec Sodium 140 (137-145) mmol/L Potassium 5.1 (3.5-5.1) mmol/L Chloride 107 (98-107) mmol/L Carbon Dioxide 26 (22-30) mmol/L Anion Gap 7 mmol/L BUN 22 H (7-17) mg/dL Creatinine 0.64 (0.52-1.04) mg/dL Est GFR (CKD-EPI)AfAm >90 (>60 ml/min/1.73 sqM) Est GFR (CKD-EPI)NonAf >90 (>60 ml/min/1.73 sqM) Glucose 107 H (74-99) mg/dL Calcium 10.2 (8.4-10.2) mg/dL Total Bilirubin 1.1 (0.2-1.3) mg/dL AST 79 H (14-36) U/L ALT 115 H (4-34) U/L Alkaline Phosphatase 69 (38-126) U/L Troponin I (0.000-0.034) ng/mL Total Protein 7.6 (6.3-8.2) g/dL Albumin 4.8 (3.5-5.0) g/dL Amylase 80 (30-110) U/L Lipase 68 (23-300) U/L 01/12/24 Range/Units 17:30 WBC (3.8-10.6) k/uL RBC (3.80-5.40) m/uL Hgb (11.4-16.0) gm/dL Hct (34.0-46.0) % MCV (80.0-100.0) fL MCH (25.0-35.0) pg MCHC (31.0-37.0) g/dL RDW (11.5-15.5) % Plt Count (150-450) k/uL MPV Neutrophils % % Lymphocytes % % Monocytes % % Eosinophils % % Basophils % % Neutrophils # (1.3-7.7) k/uL Lymphocytes # (1.0-4.8) k/uL Monocytes # (0-1.0) k/uL Eosinophils # (0-0.7) k/uL Basophils # (0-0.2) k/uL PT (10.0-12.5) sec INR (<1.2) APTT (22.0-30.0) sec Sodium (137-145) mmol/L Potassium (3.5-5.1) mmol/L Chloride (98-107) mmol/L Carbon Dioxide (22-30) mmol/L Anion Gap mmol/L BUN (7-17) mg/dL Creatinine (0.52-1.04) mg/dL Est GFR (CKD-EPI)AfAm (>60 ml/min/1.73 sqM) Est GFR (CKD-EPI)NonAf (>60 ml/min/1.73 sqM) Glucose (74-99) mg/dL Calcium (8.4-10.2) mg/dL Total Bilirubin (0.2-1.3) mg/dL AST (14-36) U/L ALT (4-34) U/L Alkaline Phosphatase (38-126) U/L Troponin I <0.012 (0.000-0.034) ng/mL Total Protein (6.3-8.2) g/dL Albumin (3.5-5.0) g/dL Amylase (30-110) U/L Lipase (23-300) U/L Disposition Clinical Impression: Acute appendicitis Disposition: ADMITTED IP TO THIS HOSP Is patient prescribed a controlled substance at d/c from ED?: No Referrals: Robert Allred DO [Primary Care Provider] - 1-2 days Time of Disposition: 19:43
[2024-01-12] MEDS: ONDANSETRON 4 MG/2 ML VIAL IVP STA (18:20)
[2024-01-12] MEDS: MORPHINE SULFATE 4 MG/ML SYRINGE IVP STA ×2 (18:22→19:44)
[2024-01-12] MEDS: FAMOTIDINE 20 MG/2 ML VIAL IV STA (18:22)
[2024-01-12] MEDS: SODIUM CHLORIDE 0.9% 1,000 ML IV STA ×2 (18:23→20:59)
[2024-01-12 18:24] LABS: Basophils # (A) 0.1 k/uL (0-0.2); Basophils % (A) 1 %; Eosinophils # (A) 0.1 k/uL (0-0.7); Eosinophils % (A) 1 %; HCT 45.3 % (34.0-46.0); HGB 14.7 gm/dL (11.4-16.0); Lymphocytes # (A) 1.2 k/uL (1.0-4.8); Lymphocytes % (A) 10 %; MCH 30.7 pg (25.0-35.0); MCHC 32.5 g/dL (31.0-37.0); MCV 94.5 fL (80.0-100.0); Mean Platelet Volume 8.1; Monocytes # (A) 0.5 k/uL (0-1.0); Monocytes % (A) 4 %; Neutrophils # (A) 10.2 k/uL (1.3-7.7); Neutrophils % (A) 84 %; Platelet Count 241 k/uL (150-450); RDW 14.4 % (11.5-15.5); WBC 12.1 k/uL (3.8-10.6)
[2024-01-12 18:44] LABS: ALT 115 U/L (4-34); AST 79 U/L (14-36); African American GFR (CKD) >90 (>60 ml/min/1.73 sqM); Albumin 4.8 g/dL (3.5-5.0); Alkaline Phosphatase 69 U/L (38-126); Amylase 80 U/L (30-110); Anion Gap 7 mmol/L; Blood Urea Nitrogen 22 mg/dL (7-17); Calcium 10.2 mg/dL (8.4-10.2); Carbon Dioxide 26 mmol/L (22-30); Chloride 107 mmol/L (98-107); Glucose 107 mg/dL (74-99); Lipase 68 U/L (23-300); Non-African American GFR(CKD) >90 (>60 ml/min/1.73 sqM); Potassium 5.1 mmol/L (3.5-5.1); Sodium 140 mmol/L (137-145); Total Bilirubin 1.1 mg/dL (0.2-1.3); Total Protein 7.6 g/dL (6.3-8.2)
[2024-01-12 18:47] LABS: INR 0.9 (<1.2); Partial Thromboplastin Time 22.6 sec (22.0-30.0); Prothrombin Time 10.4 sec (10.0-12.5)
--- NOTE | 2024-01-12 19:02 | CT ---
EXAMINATION TYPE: CT abdomen pelvis w con DATE OF EXAM: 01/12/2024 COMPARISON: NONE HISTORY: 63-year-old female Umbilical abdominal pain. Nausea and vomiting. TECHNIQUE: Contiguous axial scanning of the abdomen and pelvis following administration of 100 ml Iso alma delia 300 IV contrast. Delayed images through the kidneys and coronal/sagittal reconstructions perform ed. CT DLP: 1676.2 mGycm Automated exposure control for dose reduction was used. FINDINGS: Heart normal size without pericardial effusion. 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 Lung bases clear without pleural effusion. A couple tiny 5 mm left liver lobe cysts. No focal liver lesion otherwise seen. Portal venous system is patent. No biliary ductal dilatation. Mildly hydropic gallbladder at 4.8 cm wide but without any surrounding inflammation. There is a 5 mm gallstone noted. Distention likely relating to fasting state. Adrenal glands, spleen, and pancreas within normal limits. A couple punctate 1 to 2 mm bilateral renal calculi. Symmetric uptake and excretion of contrast from the kidneys. Benign 2.4 cm left posterior renal cyst. No dilated small bowel, free fluid, or free air. No mesenteric or retroperitoneal lymphadenopathy. There is ced fluid dilated appendix measuring up to 1.5 cm and suggestion of appendicolith at the b ase of the appendix measuring up to 1.4 cm. Minimal periappendiceal fat stranding is noted. No signif icant stool burden. Left-sided colonic diverticulosis, greatest in the proximal to mid sigmoid colon. No pericolonic inflammatory change. Bladder partially distended. Left-sided pelvic phleboliths. Uterus anteverted. There appears to be so me prominent hypoechogenicity in the central uterus measuring up to 1.2 cm, sagittal image 77. Correl ation to exclude any abnormal endometrial stripe thickening and exclude any postmenopausal bleeding. Both ovaries are visualized. No abnormal fluid collection in the pelvis or pelvic lymphadenopathy. Bones: Mild degenerative change of the hips. Moderate spondylotic change throughout the visualized lo wer thoracic and lumbar spine. IMPRESSION: 1. CED FLUID DISTENTION OF THE APPENDIX MEASURING UP TO 1.4 CM WIDE AND APPENDICOLITHS AT THE BASE OF THE APPENDIX MEASURING UP TO 1.5 CM. CORRELATE FOR POTENTIAL IMPENDING ACUTE APPENDICITIS. 2. Ascitic clonic diverticulosis without evidence for acute diverticulitis. 3. Possible endometrial stripe thickening up to 1.2 cm. Correlate for any postmenopausal bleeding. Re commend follow-up outpatient pelvic ultrasound and BURNER OPERATOR evaluation. 4. Cholelithiasis with a 5 mm gallstone. Gallbladder hydrops likely due to fasting state. No associat ed inflammation.
[2024-01-12] MEDS ORDERED: HYDROmorphone 1 MG/ML 1 ML SYRINGE IVP PRN (19:44)
[2024-01-12] MEDS ORDERED: NALOXONE 0.4 MG/ML 1 ML VIAL IV PRN ×2 (19:44→23:00)
[2024-01-12] MEDS: AMPICILLIN-SULBACTAM 1.5 GM in SODIUM CHLORIDE 0.9% 50 ML IVPB STA (20:59)
[2024-01-12] MEDS: HYDROmorphone 0.5 MG/0.5 ML SYRINGE IVP PRN (21:05)
[2024-01-12] MEDS: ONDANSETRON 4 MG/2 ML VIAL IVP PRN (21:07)
[2024-01-12] MEDS: LIDOCAINE 1%-EPI 1:100,000 50 ML VIAL SQ ONE ×2 (22:16→22:56)
--- NOTE | 2024-01-12 22:22 | P.GSHP ---
History of Present Illness H&P Date: 01/12/24 Chief Complaint: Right lower quadrant pain This is a 63-year-old female whose had a 24-hour history of right lower quadrant pain. CAT scan shows evidence of a dilated fluid-filled appendix. Patient presents for laparoscopic appendectomy. Past Medical History Past Medical History: Hypertension, Osteoarthritis (OA), Pneumonia History of Any Multi-Drug Resistant Organisms: None Reported Past Surgical History: Section, Orthopedic Surgery Additional Past Surgical History / Comment(s): right knee arthroscopic X3, Lt shoulder arthroscopic, PAIN CLINIC INJECTIONS Past Anesthesia/Blood Transfusion Reactions: No Reported Reaction Past Psychological History: No Psychological Hx Reported Smoking Status: Current every day smoker, Former smoker Past Alcohol Use History: None Reported Past Drug Use History: None Reported - Past Family History Father Additional Family Medical History / Comment(s): aneurysym. Mother Family Medical History: Coronary Artery Disease (CAD), Diabetes Mellitus Sister(s) Family Medical History: Cancer Additional Family Medical History / Comment(s): Lung CA with mets brain Medications and Allergies Home Medications Medication Instructions Recorded Confirmed Type Losartan Potassium 100 mg PO HS 02/26/01/12/24 History Albuterol Inhaler [Ventolin Hfa 1 - 2 puff INHALATION RT-Q6H PRN 06/18/22 Rx Inhaler] #1 unit Ascorbic Acid [Vitamin C] 1,000 mg PO Q48H 01/12/24 01/12/24 History Milk Thistle 150 mg PO Q48H 01/12/24 01/12/24 History Potassium Gluconate 99 mg PO Q48H 01/12/24 01/12/24 History Vitamin B Complex 1 cap PO Q48H 01/12/24 01/12/24 History Allergies Allergy/AdvReac Type Severity Reaction Status Date / Time No Known Allergies Allergy Verified 01/12/24 20:38 Surgical - Exam Vital Signs Temp Pulse Resp BP Pulse Ox 98.3 F 72 16 184/91 98 01/12/24 17:25 01/12/24 17:25 01/12/24 17:25 01/12/24 17:25 01/12/24 17:25 - General well developed, well nourished, moderate distress - Eyes PERRL - ENT normal pinna - Neck no masses - Respiratory normal expansion - Cardiovascular Rhythm: regular - Abdomen Tender right lower quadrant Abdomen: soft, non tender, tender Results - Labs 01/12/24 17:30 01/12/24 17:30 Abnormal Lab Results - Last 24 Hours (Table) 01/12/24 01/12/24 Range/Units 17:30 17:30 WBC 12.1 H (3.8-10.6) k/uL Neutrophils # 10.2 H (1.3-7.7) k/uL BUN 22 H (7-17) mg/dL Glucose 107 H (74-99) mg/dL AST 79 H (14-36) U/L ALT 115 H (4-34) U/L Diabetes panel 01/12/24 Range/Units 17:30 Sodium 140 (137-145) mmol/L Potassium 5.1 (3.5-5.1) mmol/L Chloride 107 (98-107) mmol/L Carbon Dioxide 26 (22-30) mmol/L BUN 22 H (7-17) mg/dL Creatinine 0.64 (0.52-1.04) mg/dL Glucose 107 H (74-99) mg/dL Calcium 10.2 (8.4-10.2) mg/dL AST 79 H (14-36) U/L ALT 115 H (4-34) U/L Alkaline Phosphatase 69 (38-126) U/L Total Protein 7.6 (6.3-8.2) g/dL Albumin 4.8 (3.5-5.0) g/dL Calcium panel 01/12/24 Range/Units 17:30 Calcium 10.2 (8.4-10.2) mg/dL Albumin 4.8 (3.5-5.0) g/dL Pituitary panel 01/12/24 Range/Units 17:30 Sodium 140 (137-145) mmol/L Potassium 5.1 (3.5-5.1) mmol/L Chloride 107 (98-107) mmol/L Carbon Dioxide 26 (22-30) mmol/L BUN 22 H (7-17) mg/dL Creatinine 0.64 (0.52-1.04) mg/dL Glucose 107 H (74-99) mg/dL Calcium 10.2 (8.4-10.2) mg/dL Adrenal panel 01/12/24 Range/Units 17:30 Sodium 140 (137-145) mmol/L Potassium 5.1 (3.5-5.1) mmol/L Chloride 107 (98-107) mmol/L Carbon Dioxide 26 (22-30) mmol/L BUN 22 H (7-17) mg/dL Creatinine 0.64 (0.52-1.04) mg/dL Glucose 107 H (74-99) mg/dL Calcium 10.2 (8.4-10.2) mg/dL Total Bilirubin 1.1 (0.2-1.3) mg/dL AST 79 H (14-36) U/L ALT 115 H (4-34) U/L Alkaline Phosphatase 69 (38-126) U/L Total Protein 7.6 (6.3-8.2) g/dL Albumin 4.8 (3.5-5.0) g/dL Assessment and Plan Assessment: Acute appendicitis. Patient undergo laparoscopic appendectomy.
[2024-01-12] MEDS ORDERED: LIDOCAINE 1% INJ 10MG/ML (20 ML MDV) ONE (22:31)
[2024-01-12] MEDS ORDERED: fentaNYL (PF) 50 MCG/ML 2 ML AMP ONE (22:31)
[2024-01-12] MEDS ORDERED: KETOROLAC 15 MG/ML 1 ML VIAL ONE (22:31)
[2024-01-12] MEDS ORDERED: ROCURONIUM 10 MG/ML (5 ML VIAL) IV ONE (22:31)
[2024-01-12] MEDS ORDERED: PROPOFOL 10 MG/ML 20 ML VIAL IV ONE (22:31)
[2024-01-12] MEDS ORDERED: HEPARIN SODIUM,PORCINE 5,000 UNIT/ML 1 ML VIAL ONE (22:31)
[2024-01-12] MEDS ORDERED: GLYCOPYRROLATE 0.2 MG/ML 2 ML VIAL ONE (22:31)
[2024-01-12] MEDS ORDERED: NEOSTIGMINE 1 MG/ML 10 ML VIAL ONE (22:31)
[2024-01-12] MEDS ORDERED: SUCCINYLCHOLINE CHLORIDE 200 MG/10 ML VIAL IV ONE (22:31)
[2024-01-12] MEDS ORDERED: MIDAZOLAM 2 MG/2 ML VIAL ONE (22:31)
[2024-01-12] MEDS: IV FLUID CONTINUATION 1,000 ML IV ONE (22:36)
[2024-01-12] MEDS ORDERED: HYDROmorphone 0.5 MG/0.5 ML SYRINGE IVP PRN (23:00)
[2024-01-12] MEDS ORDERED: ACETAMINOPHEN TAB 325 MG TAB PO PRN (23:00)
[2024-01-12] MEDS ORDERED: ONDANSETRON 4 MG/2 ML VIAL IVP PRN (23:00)
--- NOTE | 2024-01-12 23:00 | P.OP ---
Date of Procedure: 01/12/24 Preoperative Diagnosis: Acute appendicitis Postoperative Diagnosis: Acute appendicitis Procedure(s) Performed: Laparoscopic appendectomy Anesthesia: JOEY Surgeon: Sandeep Canada Estimated Blood Loss (ml): 5 Pathology: other (Appendix) Condition: stable Disposition: PACU Description of Procedure: Ro the patient's placed on the operating table in the supine position. The patient received general anesthesia. The abdomen was prepped and draped in the usual sterile fashion. The skin was anesthetized 1% local Xylocaine at the trocar sites. Using an 11 blade the skin was incised at the umbilicus. The umbilicus was grasped with a Annada clamp and then a Veress needle was placed into the peritoneal cavity. Position of the Veress needle was confirmed with positive drop test. After adequate insufflation a 5 mm trocar was placed into the peritoneal cavity. The abdomen was further insufflated. And then the laparoscope was placed in the peritoneal cavity. Next a 5 mm trocar was placed in the midline suprapubic position. And then a 10 mm trocar was placed in the midline epigastric position. The patient was rotated with the right side up and in Trendelenburg. The appendix was visualized. The appendix appeared to be inflamed. The appendix was grasped and then using the Harmonic scissors the mesoappendix was divided. A PDS Endoloop was then placed around the base of the appendix. And then the appendix was divided using Harmonic scissors. The appendix was placed into an Endo Catch and brought out through the 10 mm trocar site. The abdomen was irrigated. There is no bleeding seen. The trochars withdrawn. The skin was closed interrupted 3-0 Monocryl suture. Dermabond dressing was applied. Patient was sent to recovery room in stable condition.
[2024-01-12 23:40] VITALS: RESP 16
[2024-01-13] MEDS: HYDROcodone/APAP 5-325MG 1 EACH TAB PO PRN (00:20)
[2024-01-13] MEDS: LACTATED RINGERS 1,000 ML IV ONE (00:21)
[2024-01-13] MEDS: AMPICILLIN-SULBACTAM 1.5 GM in SODIUM CHLORIDE 0.9% 50 ML IVPB SCH (06:27)
[2024-01-13] MEDS ORDERED: ALBUTEROL NEBULIZED 2.5 MG/3 ML INHALATION PRN (06:58)
[2024-01-13] MEDS ORDERED: NON FORMULARY DRUG (Vitamin B Complex [Vitamin B Complex] 1 EACH Capsule) PO SCH (07:00)
[2024-01-13] MEDS: PANTOPRAZOLE 40 MG/10 ML VIAL IV SCH (08:07)
[2024-01-13] MEDS: ENOXAPARIN 40 MG/0.4 ML SYRINGE SQ SCH (08:07)
[2024-01-13] MEDS: ASCORBIC ACID 500 MG TAB PO SCH (08:07)
[2024-01-13 08:49] LABS: Basophils # (A) 0.01 X 10*3/uL (0.00-0.10); Basophils % (A) 0.1 %; Eosinophils # (A) 0.01 X 10*3/uL (0.04-0.35); Eosinophils % (A) 0.1 %; HCT 40.7 % (37.2-46.3); HGB 13.1 g/dL (12.0-15.0); Lymphocytes % (A) 9.4 %; MCH 30.5 pg (27.0-32.0); MCHC 32.2 g/dL (32.0-37.0); MCV 94.7 FL (80.0-97.0); Mean Platelet Volume 10.8 FL (9.5-12.2); Monocytes # (A) 0.52 X 10*3/uL (0.20-1.00); Monocytes % (A) 5.4 %; NRBC Per 100 WBC 0 X 10*3/uL (0.00-0.01); Neutrophils # (A) 8.16 X 10*3/uL (1.80-7.70); Neutrophils % (A) 84.8 %; Platelet Count 196 X 10*3/uL (140-440); RDW 14.9 % (11.5-14.5); WBC 9.62 X 10*3/uL (4.50-10.00)
[2024-01-13 08:55] VITALS: PULSE 82
[2024-01-13 08:56] LABS: ALT 76 U/L (8-44); AST 38 U/L (13-35); Alkaline Phosphatase 48 U/L (41-126); BUN/Creat Ratio 19.38 Ratio (12.00-20.00); Blood Urea Nitrogen 15.5 mg/dL (9.0-27.0); Calcium 9.6 mg/dL (8.7-10.3); Carbon Dioxide 20.4 mmol/L (21.6-31.8); Chloride 103 mmol/L (96-109); Glucose 121 mg/dL (70-110); Potassium 4.3 mmol/L (3.5-5.5); Sodium 138 mmol/L (135-145); Total Bilirubin 0.8 mg/dL (0.3-1.2)
[2024-01-13] MEDS: PANTOPRAZOLE 40 MG TABLET PO SCH (10:50)
[2024-01-13] MEDS ORDERED: KETOROLAC 15 MG/ML 1 ML VIAL IVP PRN (13:13)
--- NOTE | 2024-01-13 14:46 | P.DS ---
Providers Date of admission: 01/12/24 19:45 Expected date of discharge: 01/13/24 Attending physician: Sandeep Canada Consults: 01/12/24 23:00 Consult Physician Routine Consulting Provider: Ap Garcia Consult Reason/Comments: Medical management Do you want consulting provider notified?: Yes Primary care physician: [facility] Course: Discharge diagnosis 1. Acute appendicitis status post laparoscopic appendectomy Hospital course This is a 63-year-old female who presented with right lower quadrant abdominal pain. CT scan showed evidence of a dilated fluid-filled appendix. Patient is status post laparoscopic appendectomy. Patient tolerated surgery well. Pain is controlled. Tolerating diet. Afebrile. She has been up and ambulating. Denies any difficulty urinating. She is stable for discharge. Please refer to chart for any further details. Physician Independent Insurance Adjuster note has been reviewed by physician. Signing provider agrees with the documented findings, assessment, and plan of care. Patient Condition at Discharge: Stable Plan - Discharge Summary New Discharge Prescriptions: New Ibuprofen [Motrin] 600 mg PO Q8HR PRN #30 tab PRN Reason: Pain HYDROcodone/APAP 5-325MG [[place] 5-325] 1 tab PO Q6HR PRN 3 Days #12 tab PRN Reason: Pain Continue Losartan Potassium 100 mg PO HS Albuterol Inhaler [Ventolin Hfa Inhaler] 1 - 2 puff INHALATION RT-Q6H PRN #1 unit PRN Reason: Shortness Of Breath Potassium Gluconate 99 mg PO Q48H Milk Thistle 150 mg PO Q48H Ascorbic Acid [Vitamin C] 1,000 mg PO Q48H Vitamin B Complex 1 cap PO Q48H Discharge Medication List Losartan Potassium 100 mg PO HS 02/27/16 [History] Albuterol Inhaler [Ventolin Hfa Inhaler] 1 - 2 puff INHALATION RT-Q6H PRN #1 unit 06/18/22 [Rx] Ascorbic Acid [Vitamin C] 1,000 mg PO Q48H 01/12/24 [History] Milk Thistle 150 mg PO Q48H 01/12/24 [History] Potassium Gluconate 99 mg PO Q48H 01/12/24 [History] Vitamin B Complex 1 cap PO Q48H 01/12/24 [History] HYDROcodone/APAP 5-325MG [[place] 5-325] 1 tab PO Q6HR PRN 3 Days #12 tab 01/13/24 [Rx] Ibuprofen [Motrin] 600 mg PO Q8HR PRN #30 tab 01/13/24 [Rx] Follow up Appointment(s)/Referral(s): Robert Allred DO [Primary Care Provider] - 1-2 days Sandeep Canada MD [STAFF PHYSICIAN] - 1 Week Activity/Diet/Wound Care/Special Instructions: No driving while taking [place] No lifting over 10 pounds You may shower. No soaking or tub baths for 2 weeks Very light activity until you are reevaluated at your follow up appointment with your surgeon Discharge Disposition: HOME SELF-CARE
[2024-01-13 15:43] VITALS: BP 118/71; TEMP 98.9
--- NOTE | 2024-01-13 22:08 | P.CONS ---
History of Present Illness - Reason for Consult Consult date: 01/13/24 Medical management - Chief Complaint Abdominal pain - History of Present Illness Patient is a 61-year-old female with a past medical history of hypertension, osteoarthritis, and history of smoking presents to ER with complaints of abdominal pain. Patient states that pain started day before yesterday mainly in the mid abdomen region and yesterday by evening she also started having right lower quadrant abdominal pain. Associate with nausea and vomiting. Patient was having dry heaves and felt like hot flashes. Otherwise denies any chest pain or shortness of breath. Denies any recent illnesses. No cough or sputum production. Denies any dysuria or hematuria. Denies any vaginal bleeding. CT of the abdomen pelvis in the ER showed ced fluid distention of the appendix measuring up to 1.4 cm wide and appendicoliths at the base of the appendix. Correlate for potential impending acute appendicitis. Acetic colonic diverticulosis without evidence for acute diverticulitis. Possible endometrial stripe thickening up to 1.2 cm correlate for any postmenopausal bleeding. Recommend follow-up outpatient pelvic ultrasound and [facility] evaluation. Cholelithiasis with 5 mm gallstone. Gallbladder hydrops likely due to fasting state. No associated inflammation. EKG showed sinus rhythm. Laboratory data showed WBC 12.1 hemoglobin 14.7 platelets 241 Sodium 140 potassium 5.1 chloride 107 bicarb is 26 BUN 2020 creatinine 0.64 and blood sugar 107 AST 79 ALT 115 and alk phos 69 and troponin x 1 negative lipase 68 amylase 18 Review of Systems Constitutional: Patient denies any fever or chills . no Generalized weakness. Abdomen: Patient denied any nausea or vomiting. Patient does have abdominal soreness at the surgical sites. No diarrhea. n Cardiovascular: Patient denies any chest pain or short of breath no palpitations. Respiratory: patient denied any cough . no sputum production. No shortness of breath Neurologic: Patient denied any numbness or tingling or headache. Musculoskeletal: Patient denies any complaints of joint swelling or deformity. Skin: Negative Psychiatric: Negative Endocrine: No heat or cold intolerance. No recent weight gain. Genitourinary: No dysuria or hematuria. All other 14 point ROS negative except the above Past Medical History Past Medical History: Hypertension, Osteoarthritis (OA), Pneumonia Additional Past Medical History / Comment(s): Psoriasis. History of Any Multi-Drug Resistant Organisms: None Reported Past Surgical History: Section, Orthopedic Surgery Additional Past Surgical History / Comment(s): right knee arthroscopic X3, Lt shoulder arthroscopic, PAIN CLINIC INJECTIONS Past Anesthesia/Blood Transfusion Reactions: No Reported Reaction Past Psychological History: No Psychological Hx Reported Smoking Status: Former smoker Past Alcohol Use History: None Reported Past Drug Use History: None Reported - Past Family History Father Additional Family Medical History / Comment(s): aneurysym. Mother Family Medical History: Coronary Artery Disease (CAD), Diabetes Mellitus Sister(s) Family Medical History: Cancer Additional Family Medical History / Comment(s): Lung CA with mets brain Medications and Allergies Home Medications Medication Instructions Recorded Confirmed Type Losartan Potassium 100 mg PO HS 02/26/01/12/24 History Albuterol Inhaler [Ventolin Hfa 1 - 2 puff INHALATION RT-Q6H PRN 06/18/22 01/12/24 Rx Inhaler] #1 unit Ascorbic Acid [Vitamin C] 1,000 mg PO Q48H 01/12/24 01/12/24 History Milk Thistle 150 mg PO Q48H 01/12/24 01/12/24 History Potassium Gluconate 99 mg PO Q48H 01/12/24 01/12/24 History Vitamin B Complex 1 cap PO Q48H 01/12/24 01/12/24 History HYDROcodone/APAP 5-325MG [[place] 1 tab PO Q6HR PRN 3 Days #12 tab 01/13/24 Rx 5-325] Ibuprofen [Motrin] 600 mg PO Q8HR PRN #30 tab 01/13/24 Rx Allergies Allergy/AdvReac Type Severity Reaction Status Date / Time No Known Allergies Allergy Verified 01/12/24 20:38 Physical Exam Vitals: Vital Signs Temp Pulse Pulse Pulse Resp BP BP 01/13/24 08:07 16 01/13/24 07:00 99.8 F H 82 16 108/72 01/13/24 02:30 94 01/13/24 01:30 94 01/13/24 01:00 81 01/13/24 00:30 98.1 F 89 01/12/24 23:45 89 16 01/12/24 23:30 95 16 01/12/24 23:15 95 16 01/12/24 23:09 97.9 F 98 16 01/12/24 21:14 98.4 F 72 18 136/78 01/12/24 18:25 127/104 01/12/24 17:25 98.3 F 72 16 184/91 BP Pulse Ox 01/13/24 08:07 01/13/24 07:00 95 01/13/24 02:30 120/78 95 01/13/24 01:30 134/84 96 01/13/24 01:00 124/77 95 01/13/24 00:30 117/64 96 01/12/24 23:45 136/64 97 01/12/24 23:30 136/62 100 01/12/24 23:15 150/69 96 01/12/24 23:09 148/71 96 01/12/24 21:14 95 01/12/24 18:25 01/12/24 17:25 98 Intake and Output 01/12/24 01/13/24 01/13/24 22:59 06:59 14:59 Intake Total 600 0 Output Total 5 Balance 600 -5 Intake: IV 600 0 Output: Estimated Blood Loss 5 Other: Voiding Method Toilet Toilet # Voids 2 Weight 102.965 kg 102.965 kg PHYSICAL EXAMINATION: Patient is lying in the bed comfortably, no acute distress, awake alert and oriented.. HEENT: Normocephalic. Neck is supple. Pupils reactive. Nostrils clear. Oral cavity is moist. Neck reveals no JVD, carotid bruits, or thyromegaly. CHEST EXAMINATION: Trachea is central. Symmetrical expansion. Lung bryant clear to auscultation and percussion. CARDIAC: Normal S1, S2 with no gallops. No murmurs ABDOMEN: Soft. Bowel sounds present. Surgical incision sites intact. Nontender. No organomegaly. No abdominal bruits. Extremities: reveal no edema. No clubbing or cyanosis Neurologically awake, alert, oriented x3 with well-coordinated movements. No f ocal deficits noted Skin: No rash or skin lesions. Psychiatric: Coperative. Nonsuicidal, Musculoskeletal: No joint swelling or deformity. Normal range of motion. Results CBC & Chem 7: 01/13/24 05:51 01/13/24 05:51 Labs: Abnormal Lab Results - Last 24 Hours (Table) 01/12/24 01/12/24 01/13/24 Range/Units 17:30 17:30 05:51 WBC 12.1 H (3.8-10.6) k/uL RDW 14.9 H (11.5-14.5) % Neutrophils # 10.2 H 8.16 H (1.3-7.7) k/uL Eosinophils # 0.01 L (0.04-0.35) X 10*3/uL Carbon Dioxide (21.6-31.8) mmol/L Anion Gap (4.00-12.00) mmol/L BUN 22 H (7-17) mg/dL Glucose 107 H (74-99) mg/dL AST 79 H (14-36) U/L ALT 115 H (4-34) U/L Total Protein (6.2-8.2) g/dL 01/13/24 Range/Units 05:51 WBC (3.8-10.6) k/uL RDW (11.5-14.5) % Neutrophils # (1.3-7.7) k/uL Eosinophils # (0.04-0.35) X 10*3/uL Carbon Dioxide 20.4 L (21.6-31.8) mmol/L Anion Gap 14.60 H (4.00-12.00) mmol/L BUN (7-17) mg/dL Glucose 121 H (74-99) mg/dL AST 38 H (14-36) U/L ALT 76 H (4-34) U/L Total Protein 6.0 L (6.2-8.2) g/dL Assessment and Plan Assessment: Abdominal pain secondary to acute appendicitis. Status post laparoscopic appendectomy. Postoperative day 1 Cholelithiasis Mild transaminitis. Improving. Hypertension uncontrolled on admission likely due to pain Osteoarthritis History of smoking GI and DVT prophylaxis Plan: Patient with continued on IV hydration and oral intake as patient tolerates. Patient is able to pass flatus. No bowel meant yet. Continue with pain medications and encourage incentive spirometry. Continue with home blood pressure medications. Leukocytosis is improving. Will continue to follow and further recommendations based on the clinical course. Patient will follow-up with primary care physician general surgery as outpatient due to cholelithiasis. Patient was also advised to follow-up with [facility] for pelvic ultrasound. Discussed with the patient and her family member at bedside.
== END 2024-01-13 15:33 | disposition home or self-care (01) ==
LOC: EC 17:17 → 6NMEDSUR 19:45
PROVIDERS: ADMIT Surgery; ATTEND Surgery
DX: K35.80 Unspecified acute appendicitis (principal); I10 Essential (primary) hypertension; K82.1 Hydrops of gallbladder; K80.10 Calculus of gallbladder with chronic cholecystitis without obstruction; M19.90 Unspecified osteoarthritis, unspecified site; K57.90 Diverticulosis of intestine, part unspecified, without perforation or abscess without bleeding; L40.9 Psoriasis, unspecified; Z79.899 Other long term (current) drug therapy; Z87.891 Personal history of nicotine dependence; Z87.01 Personal history of pneumonia (recurrent); Z83.3 Family history of diabetes mellitus; Z82.49 Family history of ischemic heart disease and other diseases of the circulatory system; Z80.1 Family history of malignant neoplasm of trachea, bronchus and lung
CPT/HCPCS: 96372; 96376; 96374; 96375; 99285; 36415; 93005; 88304; 80053 ×2; 82150; 83605; 83690; 84484; 85025 ×2; 85610; 85730; 87040; 74177; 44970; G0378 ×2; J2250; J0330; J2270; J1644; J2710; J2405; J2001; J1650; J3010; J3490; J0295 ×2; J1885; J2704; J1170 ×2; Q9967

== ENCOUNTER 2024-02-19 06:11 | Day surgery (SDC) | payer BC ==
[2024-02-15 16:20] VITALS: BMI 33.5
[~2024-02-19 06:11] MED LIST changes: -IV FLUID CONTINUATION 900 ML IV ONE; -LACTATED RINGERS 1,000 ML IV SCH; -LIDOCAINE 1% (10MG/ML) FOR IV START INTRADERMA ONE; -LIDOCAINE 1% (10MG/ML) FOR IV START INTRADERMA PRN; -MIDAZOLAM 2 MG/2 ML VIAL ONE; -ROPIVACAINE 5MG/ML 20ML VIAL ONE; +SCOPOLAMINE 1 MG/72 HR PATCH TRANSDERM ONE; -fentaNYL (PF) 50 MCG/ML 2 ML AMP ONE; -methylPREDNISolone ACETATE 40 MG/ML 1 ML VIAL ONE
[2024-02-19] MEDS ORDERED: MIDAZOLAM 2 MG/2 ML VIAL IV PRN (07:00)
[2024-02-19] MEDS: ACETAMINOPHEN TAB 500 MG TAB PO PRN (07:15)
[2024-02-19] MEDS: LACTATED RINGERS 1,000 ML IV SCH (07:15)
[2024-02-19] MEDS: LIDOCAINE 1% (10MG/ML) FOR IV START INTRADERMA ONE (07:19)
[2024-02-19] MEDS: HEPARIN SODIUM,PORCINE 5,000 UNIT/ML 1 ML VIAL SQ PRN (07:20)
[2024-02-19] MEDS: ONDANSETRON 4 MG/2 ML VIAL IVP ONE (07:20)
[2024-02-19] MEDS: DEXAMETHASONE SOD PHOSPHATE 4 MG/ML 1 ML VIAL IV ONE (07:20)
[2024-02-19] MEDS ORDERED: NEOSTIGMINE 1 MG/ML 10 ML VIAL ONE (07:27)
[2024-02-19] MEDS ORDERED: PHENYLEPHRINE 10 MG/ML VIAL ONE (07:27)
[2024-02-19] MEDS ORDERED: LIDOCAINE 1% INJ 10MG/ML (20 ML MDV) ONE (07:27)
[2024-02-19] MEDS ORDERED: SUCCINYLCHOLINE CHLORIDE 200 MG/10 ML VIAL IV ONE (07:27)
[2024-02-19] MEDS ORDERED: KETOROLAC 15 MG/ML 1 ML VIAL ONE (07:27)
[2024-02-19] MEDS ORDERED: ROCURONIUM 10 MG/ML (5 ML VIAL) IV ONE (07:27)
[2024-02-19] MEDS ORDERED: MIDAZOLAM 2 MG/2 ML VIAL ONE (07:27)
[2024-02-19] MEDS ORDERED: PROPOFOL 10 MG/ML 20 ML VIAL IV ONE (07:27)
[2024-02-19] MEDS ORDERED: GLYCOPYRROLATE 0.2 MG/ML 2 ML VIAL ONE (07:27)
[2024-02-19] MEDS ORDERED: fentaNYL (PF) 50 MCG/ML 2 ML AMP ONE (07:27)
[2024-02-19] MEDS ORDERED: KETAMINE HCL IN 0.9 % NACL 50 MG/5 ML SYRINGE ONE (07:27)
[2024-02-19] MEDS: BUPIVACAINE (PF) 0.25% 30 ML VIAL SQ ONE ×2 (07:43→07:51)
--- NOTE | 2024-02-19 08:18 | P.OP ---
Date of Procedure: 02/19/24 Preoperative Diagnosis: cholelithiasis Postoperative Diagnosis: cholelithiasis Procedure(s) Performed: laparoscopic cholecystectomy Anesthesia: JOEY Surgeon: Sandeep Canada Estimated Blood Loss (ml): 5 Pathology: other (gallbladder) Condition: stable Disposition: PACU Description of Procedure: The patient was placed on the operating table. The patient received a general endotracheal tube anesthesia. The patients abdomen was prepped and draped in the usual sterile fashion. Through an infraumbilical stab incision, the fascia of the anterior abdominal wall was grasped with a pair of Kochers and then the Veress needle was placed in the peritoneal cavity. Position of the Veress needle was confirmed with positive drop test. The abdomen was then insufflated. After adequate insufflation, the 10 mm trocar was placed in the peritoneal cavity. Following this the laparoscope was placed in the peritoneal cavity. The patient was placed in the head-up, right side up position and then a 5 mm trocar was placed in the right lateral and right subcostal position under direct visualization. A 8 mm trocar was placed in the epigastric position. The gallbladder was grasped in the fundus and infundibulum. Traction on the gallbladder was placed in the lateral and the cephalad positions. The triangle of Calot was visualized.. The cystic duct was bluntly dissected until the union of the cystic duct and common bile duct was seen. A critical view of safety was achieved. The cystic duct was then divided and sealed with the Harmonic scissors. A PDS Endoloop was then placed throughout the cystic duct stump. The cystic artery divided and sealed with the Harmonic scissors. The gallbladder was then removed from the liver bed using Harmonic scissors. The gallbladder was then extracted through the epigastric port site. Operative field was checked for any bleeding spots and Harmonic scissors was used to coagulate the liver bed. The abdomen was irrigated. The trocars were removed. The skin was closed using interrupted 3-0 Vicryl suture. Dermabond dressing were applied. The patient tolerated the procedure well.
[2024-02-19] MEDS: HYDROmorphone 0.5 MG/0.5 ML SYRINGE IVP PRN (08:52)
[2024-02-19] MEDS: LACTATED RINGERS 1,000 ML IV ONE ×2 (08:55→09:12)
[2024-02-19 09:04] VITALS: TEMP 96.8
[2024-02-19 10:21] VITALS: BP 131/85; PULSE 68; RESP 16
== END 2024-02-19 10:12 | disposition home or self-care (01) ==
LOC: OR 06:11
PROVIDERS: ATTEND Surgery
DX: K81.1 Chronic cholecystitis (principal); I10 Essential (primary) hypertension; J44.9 Chronic obstructive pulmonary disease, unspecified; Z79.899 Other long term (current) drug therapy; Z79.82 Long term (current) use of aspirin; Z87.891 Personal history of nicotine dependence
CPT/HCPCS: 47562; S2900; 88304

== ENCOUNTER → 2024-04-08 | Outpatient (CLI) | payer BC ==
--- NOTE | 2024-04-09 02:45 | US ---
EXAMINATION TYPE: US venous doppler duplex LE RT DATE OF EXAM: 04/08/2024 10:03 AM COMPARISON: NONE CLINICAL INDICATION: Female, 63 years old with history of M79.661 PAIN IN RLE R22.41 LOCALIZED SWELLI NG, MASS; pain right leg, no h/o dvt SIDE PERFORMED: Right TECHNIQUE: The lower extremity deep venous system is examined utilizing real time linear array sonog ritika with graded compression, doppler sonography and color-flow sonography. VESSELS IMAGED: Common Femoral Vein Deep Femoral Vein Greater Saphenous Vein * Femoral Vein Popliteal Vein Small Saphenous Vein * Proximal Calf Veins (* superficial vessels) Grayscale, color doppler, spectral doppler imaging performed of the deep veins of the lower right ext remity. There is normal flow, compressibility, vascular waveforms. Right Leg: Negative for DVT IMPRESSION: No deep venous thrombosis of the right lower extremity.
== END | disposition home or self-care (01) ==
LOC: RADUSWWP 09:45
PROVIDERS: ATTEND Family Medicine
DX: M79.661 Pain in right lower leg (principal); R22.41 Localized swelling, mass and lump, right lower limb

== ENCOUNTER → 2024-11-04 | Outpatient (CLI) | payer BC ==
--- NOTE | 2024-11-06 04:52 | MM ---
Reason for Exam: Screening (asymptomatic). Last mammogram was performed 1 year(s) and 2 month(s) ago. Patient History: Menarche at age 14. First Full-Term at age 32. Late child-bearing (after 30). Postmenopausal. Patient has history of breast feeding. Risk Values: Linda 5 year model risk: 2.1%. NCI Lifetime model risk: 9.4%. Prior Study Comparison: 03/10/2016 Bilateral Screening Mammogram, [facility]. 05/02/2019 Bilateral Screening Mammogram, [facility]. 09/15/2023 Bilateral MG 3D screening mammo w/cad, [facility]. Tissue Density: There are scattered areas of fibroglandular density. Findings: Analyzed By CAD. The pattern is symmetrical. No significant interval change. Chronic nodularity left breast. No suspicious groups of microcalcifications, spiculated or lobular masses, architectural distortion or other secondary signs of malignancy are mammographically apparent. Overall Assessment: Benign, BI-RAD 2 Management: Screening Mammogram of both breasts in 1 year. A negative mammogram report should not preclude additional follow up of suspicious palpable abnormalities. Patient should continue monthly self breast exam. A clinical breast exam by your physician is recommended on an annual basis and results should be correlated with mammographic findings. Note on Linda scores and lifetime risk: 1. A Linda score greater than 3% is considered moderate risk. If this is the case, consider specialist referral to assess eligibility for a risk reducing agent. 2. If overall lifetime risk for the development of breast cancer is 20% or higher, the patient may qualify for future screening with alternating mammogram and breast MRI. [facility], , 11/06/2024 4:49 AM. Electronically signed and approved by: Gerald Cerna D.O. Radiologis
== END | disposition home or self-care (01) ==
LOC: RADMAMWWP 12:56
PROVIDERS: ATTEND Obstetrics & Gynecology
DX: Z12.31 Encounter for screening mammogram for malignant neoplasm of breast (principal); Z78.0 Asymptomatic menopausal state; R92.323 Mammographic fibroglandular density, bilateral breasts
CPT/HCPCS: 77063; 77067